=== PATIENT | male | born 1930 | race Caucasian/White ===

== ENCOUNTER 2018-03-05 09:28 | Inpatient (IN) | payer MEDICARE ==
[~2018-03-05] VITALS: Ht 167.6 cm; Wt 86.6 kg
[2018-03-05 10:04] LABS: BASO # 0.1 x10^3/uL (0.0-0.2); BASO % 1 % (0-3); EOS # 0.6 x10^3/uL (0.0-0.7); EOS % 6 % (0-3); HEMATOCRIT 47.7 % (39.0-53.0); HEMOGLOBIN 16.5 g/dL (13.0-17.5); LYMPH # 1.5 x10^3/uL (1.0-4.8); LYMPH % 16 % (24-48); MEAN CORPUSCULAR HEMOGLOBIN 31 pg (25-35); MEAN CORPUSCULAR HGB CONC 35 g/dL (31-37); MEAN CORPUSCULAR VOLUME 91 fL (79-100); MONO % 11 % (0-9); NEUT # 6.1 x10^3uL (1.8-7.7); NEUT % 67 % (31-73); RED BLOOD COUNT 5.26 x10^6/uL (4.30-5.70); WHITE BLOOD COUNT 9.2 x10^3/uL (4.0-11.0)
--- NOTE | 2018-03-05 10:08 | PHYS DOC ---
Past Medical History Past Medical History: A-Fib, High Cholesterol, Hypertension Past Surgical History: Pacemaker, Other Additional Past Surgical Histo: PACEMAKER X3,HERNIA,EYE Alcohol Use: None Drug Use: None Adult General Chief Complaint Chief Complaint: ABNORMAL LABS [facility] Patient is a 87 year old who presents with thrombocytopenia. The patient noted 2 days ago a petechial rash over the lower extremities. He was evaluated by his primary care physician yesterday. He had basic labs done and was noted to have very low platelet counts. He was referred to the emergency department. The patient has been at baseline health otherwise. He has no recent viral illness. He does have history of high blood pressure and high cholesterol as well as atrial fibrillation. His current medications are listed below. He has been on these medications for an extended period of time and none of them are new. He has been on the eliquis for over 1 year. He denies abdominal pain. He denies hematochezia or melena. He has been eating and drinking normally. He denies hematuria. He has no fever or body aches. No recent travel. CURRENT MEDICATIONS: - HCTZ 25 MG DAILY - METOPROLOL TARTRATE 100MG BID - SIMVASTATIN 20 MG DAILY - CARTIA XT 180 MG DAILY - ELIQUIS 2.5 MG BID Review of Systems Review of Systems Constitutional: Denies fever or chills Eyes: Denies change in visual acuity, redness, or eye pain HENT: Denies nasal congestion or sore throat Respiratory: Denies cough or shortness of breath Cardiovascular: No additional information not addressed in HPI GI: Denies abdominal pain, nausea : Denies dysuria or hematuria Musculoskeletal: Denies back pain Integument: Denies rash or skin lesions Neurologic: Denies headache Endocrine: Denies polyuria All other systems were reviewed and found to be within normal limits, except as documented in this note. Allergies Allergies Allergies Coded Allergies Type Severity Reaction Last Updated Verified No Known Drug Allergies 03/05/18 No Physical Exam Physical Exam Constitutional: Well developed, well nourished, no acute distress, non-toxic appearance HENT: Normocephalic, atraumatic, bilateral external ears normal, oropharynx moist, no oral exudates, the patient has a few oral ulcers that appear more like blood blisters. At least one of these is oozing a scant amount of blood. Eyes: PERRLA, EOMI, conjunctiva normal, no discharge. Neck: Normal range of motion, no tenderness Cardiovascular:Heart rate regular rhythm, no murmur Lungs & Thorax: Bilateral breath sounds clear to auscultation Abdomen: Bowel sounds normal, soft, no tenderness Skin: Warm, dry, petechial rash over the bilateral lower extremities and also over the upper extremities although less pronounced. Back: No tenderness Extremities: No tenderness, no edema Neurologic: Alert and oriented X 3, normal motor function, normal sensory function, no focal deficits noted. Psychologic: Affect normal, judgement normal, mood normal. Current Patient Data Vital Signs Vital Signs Date Time Temp Pulse Resp B/P (MAP) Pulse Ox O2 Delivery O2 Flow Rate FiO2 03/05/18 09:33 97.6 71 18 169/83 (111) 96 Room Air 97.6 Lab Values Laboratory Tests Test 03/05/18 09:50 White Blood Count 9.2 x10^3/uL (4.0-11.0) Red Blood Count 5.26 x10^6/uL (4.30-5.70) Hemoglobin 16.5 g/dL (13.0-17.5) Hematocrit 47.7 % (39.0-53.0) Mean Corpuscular Volume 91 fL (79-100) Mean Corpuscular Hemoglobin 31 pg (25-35) Mean Corpuscular Hemoglobin Concent 35 g/dL (31-37) Red Cell Distribution Width 14.0 % (11.5-14.5) Platelet Count 5 x10^3/uL (140-400) *L Neutrophils (%) (Auto) 67 % (31-73) Lymphocytes (%) (Auto) 16 % (24-48) L Monocytes (%) (Auto) 11 % (0-9) H Eosinophils (%) (Auto) 6 % (0-3) H Basophils (%) (Auto) 1 % (0-3) Neutrophils # (Auto) 6.1 x10^3uL (1.8-7.7) Lymphocytes # (Auto) 1.5 x10^3/uL (1.0-4.8) Monocytes # (Auto) 1.0 x10^3/uL (0.0-1.1) Eosinophils # (Auto) 0.6 x10^3/uL (0.0-0.7) Basophils # (Auto) 0.1 x10^3/uL (0.0-0.2) Platelet Estimate Decreased (ADEQUATE) Prothrombin Time 14.2 SEC (11.7-14.0) H Prothrombin Time INR 1.2 (0.8-1.1) H PTT 31 SEC (24-38) Fibrinogen 533 mg/dL (200-440) H D-Dimer (Gill) 4.87 ug/mlFEU (0.00-0.50) H Sodium Level 139 mmol/L (136-145) Potassium Level 3.5 mmol/L (3.5-5.1) Chloride Level 99 mmol/L (98-107) Carbon Dioxide Level 32 mmol/L (21-32) Anion Gap 8 (6-14) Blood Urea Nitrogen 18 mg/dL (8-26) Creatinine 1.1 mg/dL (0.7-1.3) Estimated GFR (Cockcroft-Gault) 63.5 Glucose Level 101 mg/dL (70-99) H Calcium Level 9.4 mg/dL (8.5-10.1) Total Bilirubin 2.2 mg/dL (0.2-1.0) H Direct Bilirubin 0.5 mg/dL (0.0-0.2) H Aspartate Amino Transferase (AST) 19 U/L (15-37) Alanine Aminotransferase (ALT) 27 U/L (16-63) Alkaline Phosphatase 75 U/L (46-116) Lactate Dehydrogenase 195 U/L (85-227) Total Protein 7.7 g/dL (6.4-8.2) Albumin 4.2 g/dL (3.4-5.0) Laboratory Tests 03/05/18 09:50 Laboratory Tests 03/05/18 09:50 EKG EKG [] Radiology/Procedures Radiology/Procedures [] Course & Med Decision Making Course & Med Decision Making Pertinent Labs and Imaging studies reviewed. (See chart for details) Patient is evaluated in the emergency department for low platelets. His platelets are documented above. He did have some scant amount of bleeding from an ulcer in his mouth but no acute bleeding. The patient has been at baseline health otherwise. He does take several medications which could induce thrombocytopenia although none of them are new to this patient. No fever. I discussed this patient with Dr. Metzger, the cell room operator sound effects person. Plan will be to admit the patient on high-dose Decadron. He will have 40 mg daily. He is given 125 mg of Solu-Medrol in the ER. Bridge orders are placed. Patient is also placed on fall and bleeding precautions. I spoke to the patient's primary care physician, Dr. Gregg, who will primarily admit the patient. Prior to admission, all results are reviewed and discussed with the patient and his family and all of their questions are answered. Dragon Disclaimer Dragon Disclaimer This electronic medical record was generated, in whole or in part, using a voice recognition dictation system. FABIANA CHAWLA DO Mar 05, 2018 10:08
[2018-03-05 10:10] LABS: CALCIUM 9.4 mg/dL (8.5-10.1); CREATININE 1.1 mg/dL (0.7-1.3); GFR 63.5; POTASSIUM 3.5 mmol/L (3.5-5.1)
[2018-03-05 10:16] LABS: ALBUMIN 4.2 g/dL (3.4-5.0); DIRECT BILIRUBIN 0.5 mg/dL (0.0-0.2); TOTAL BILIRUBIN 2.2 mg/dL (0.2-1.0); TOTAL PROTEIN 7.7 g/dL (6.4-8.2)
[2018-03-05 10:17] LABS: PROTHROMBIN TIME PATIENT 14.2 SEC (11.7-14.0)
[2018-03-05 10:21] LABS: PLATELET COUNT 5 x10^3/uL (140-400)
[2018-03-05 10:22] LABS: PLT ESTIMATE DECREASED (ADEQUATE)
[2018-03-05] MEDS ORDERED: ONDANSETRON PF 4 MG/2 ML VIAL. IV PRN (11:15)
[2018-03-05] MEDS ORDERED: methylPREDNISolone SOD SUCC PF 125 MG/2 ML VIAL. IV ONE (11:15)
[2018-03-05] MEDS ORDERED: ACETAMINOPHEN 325 MG TABLET. PO PRN (11:15)
[2018-03-05 12:00] VITALS: BP 95/66
[2018-03-05 15:00] VITALS: BP 141/72
[2018-03-05] MEDS ORDERED: SIMV20TA3 PO (15:56)
[2018-03-05] MEDS ORDERED: HYDR12.58 PO (15:56)
[2018-03-05] MEDS ORDERED: APIX2.5T PO (15:56)
[2018-03-05] MEDS ORDERED: DILT180C64 PO (15:56)
[2018-03-05] MEDS ORDERED: METO50TA6 PO (15:56)
[2018-03-05] MEDS: PANTOPRAZOLE 40 MG TABLET.DR. PO SCH (16:42)
[2018-03-05] MEDS: hydroCHLOROthiazide 12.5 MG CAPSULE PO SCH (16:43)
[2018-03-05 19:00] VITALS: BP 140/74
[2018-03-05 20:06] LABS: BASO % 0 % (0-3); EOS % 0 % (0-3); HEMATOCRIT 44.5 % (39.0-53.0); HEMOGLOBIN 15.5 g/dL (13.0-17.5); LYMPH # 0.6 x10^3/uL (1.0-4.8); LYMPH % 9 % (24-48); MEAN CORPUSCULAR HEMOGLOBIN 32 pg (25-35); MEAN CORPUSCULAR HGB CONC 35 g/dL (31-37); MEAN CORPUSCULAR VOLUME 91 fL (79-100); MONO # 0.1 x10^3/uL (0.0-1.1); MONO % 1 % (0-9); NEUT # 5.7 x10^3uL (1.8-7.7); NEUT % 90 % (31-73); RED BLOOD COUNT 4.91 x10^6/uL (4.30-5.70); RED CELL DISTRIBUTION WIDTH 14.1 % (11.5-14.5); WHITE BLOOD COUNT 6.3 x10^3/uL (4.0-11.0)
[2018-03-05 20:09] LABS: PLATELET COUNT 3 x10^3/uL (140-400)
[2018-03-05] MEDS: METOPROLOL TART IMMED RELEASE 50 MG TABLET. PO SCH (20:33)
[2018-03-05] MEDS: ATORVASTATIN CALCIUM 10 MG TABLET. PO SCH (20:33)
[2018-03-05 20:40] LABS: % BANDS 3 % (0-9); % LYMPHS 8 % (24-48); % MYELOS 1 % (0-0); % SEGS 88 % (35-66); PLT ESTIMATE DECREASED (ADEQUATE)
[2018-03-05 20:44] LABS: POIKILOCYTOSIS SLIGHT
[2018-03-05 20:47] LABS: SPHEROCYTES OCC
--- NOTE | 2018-03-05 22:27 | HP ---
ADMIT DATE: 03/05/2018 CHIEF COMPLAINT: Bruising. HISTORY OF PRESENT ILLNESS: An 87-year-old white male seen on the day prior to admission and noted to have about 3-day history of gradually increasing "skin rash." These lesions were found to be petechial and purpuric lesions and CBC revealed a platelet count of under 6000. He was admitted through the office for emergency evaluation and assessment of his thrombocytopenia. The hemoglobin and white cell count were normal on his CBC and physical exam otherwise unremarkable consistent with the suspected diagnosis of ITP. PAST MEDICAL HISTORY: Well documented on the old record. MEDICATIONS: He takes Eliquis for paroxysmal atrial fibrillation, but has been in sinus rhythm in office visits. He is followed through the [place] for these meds. He is also on simvastatin and hydrochlorothiazide. ALLERGIES: No allergies are known. SOCIAL HISTORY: , retired, physically active, nondrinker. FAMILY HISTORY: Unremarkable. REVIEW OF SYSTEMS: No other complaints. OBJECTIVE: ENT: All within normal limits. He does have hemorrhagic lesions of both buccal mucosa from minor trauma. Sclerae are clear. NECK: Revealed no carotid bruits, adenopathy or masses. LUNGS: Clear. CARDIOVASCULAR: Regular rate. No murmur. Sinus rhythm is present. ABDOMEN: Soft. Nontender. No hepatosplenomegaly is noted. EXTREMITIES: Innumerable 3-8 mm purpuric lesions primarily in the lower extremities, small wounds on the upper extremities. Nail beds appear to be unremarkable. Pedal and radial pulses good. No edema. NEUROLOGIC: Physiologic, nonfocal. ASSESSMENT: Severe thrombocytopenia, duration and etiology undetermined. 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 PLAN: High-dose steroids already instituted, hematologic consultation and observation as he is high risk for catastrophic bleeding at this time. GEN PILLAI MD DR: FLACO/yovana JOB#: [id number] / [id number]
[2018-03-05 23:00] VITALS: BP 116/63
[2018-03-06] VITALS (17 sets, daily range): BP systolic 105–139; BP diastolic 50–77
[2018-03-06 04:30] LABS: CALCIUM 8.8 mg/dL (8.5-10.1); CREATININE 1.2 mg/dL (0.7-1.3); GFR 57.4; POTASSIUM 3.5 mmol/L (3.5-5.1)
--- NOTE | 2018-03-06 07:29 | PDOC2 ---
CONSULT Date of Consult Date of Consult DATE: 03/06/18 TIME: 07:22 Reason for Consult Reason for Consult: thrombocytopenia Identification/Chief Complaint Chief Complaint low plt count History of Present Illness Reason for Visit: 87 yo M who came down with large petechiae in mouth/lips, petechial rash on legs , so went into PCP's office on Wednesday. Labs drawn showed significant thrombocytopenia, and was told to come into ER yest morning. Feeling okay otherwise. Came into ER on 03/05/18, found to have plt count 5K with normal WBC and Hgb, given 125mg IV solumedrol @noon yesterday. No response in plt count yet. This morning, he cannot open his R eye and there is no exudate/drainage keeping eye shut; no facial droop, no slurring of words, sensation and strength intact otherwise in all four extremities. Past Medical History Cardiovascular: AFIB, HTN Pulmonary: No pertinent hx Heme/Onc: No pertinent hx Hepatobiliary: No pertinent hx Psych: No pertinent hx Rheumatologic: No pertinent hx Infectious disease: No pertinent hx ENT: No pertinent hx Renal/: No pertinent hx Endocrine: No pertinent hx Dermatology: No pertinent hx Family History Family History non contributory Current Problem List Problem List Problems Medical Problems: (1) Thrombocytopenia Status: Acute Current Medications Current Medications Current Medications Methylprednisolone Sodium Succinate (SOLU-Medrol 125MG VIAL) 125 mg 1X ONCE IV Last administered on 03/05/18at 11:48; Start 03/05/18 at 11:15; Stop 03/05/18 at 11:16; Status DC Ondansetron HCl (Zofran) 4 mg PRN Q8HRS PRN IV NAUSEA/VOMITING; Start 03/05/18 at 11:15; Stop 03/06/18 at 11:14 Acetaminophen (Tylenol) 650 mg PRN Q4HRS PRN PO FEVER; Start 03/05/18 at 11:15; Stop 03/06/18 at 11:14 Dexamethasone (Decadron) 40 mg DAILYWBKFT PO ; Start 03/06/18 at 08:00 Pantoprazole Sodium (Protonix) 40 mg DAILYAC PO Last administered on 03/05/18at 16:42; Start 03/05/18 at 16:30 Metoprolol Tartrate (Lopressor) 50 mg BID PO Last administered on 03/05/18at 20: 33; Start 03/05/18 at 21:00 Hydrochlorothiazide (Microzide) 12.5 mg DAILY PO Last administered on 03/05/18at 16:43; Start 03/05/18 at 17:00 Atorvastatin Calcium (Lipitor) 10 mg QHS PO Last administered on 03/05/18at 20:33 ; Start 03/05/18 at 21:00 Diltiazem HCl (Cardizem 24hr Cd) 180 mg DAILY PO Last administered on 03/05/18at 16:43; Start 03/05/18 at 17:00 Immune Globulin 200 ml @ 0 mls/hr DAILY10 IV ; Start 03/06/18 at 10:00; Stop 03/10 at 09:59; Status UNV Active Scripts Active Reported Eliquis (Apixaban) 2.5 Mg Tablet 2.5 Mg PO BID Cartia Xt (Diltiazem Hcl) 180 Mg Cap.er.24h 180 Mg PO Hydrochlorothiazide Tablet (Hydrochlorothiazide) 12.5 Mg Tablet 1 Tab PO DAILY Simvastatin 20 Mg Tablet 1 Tab PO QHS Metoprolol Tartrate 50 Mg Tablet 1 Tab PO BID Allergies Allergies: Coded Allergies: No Known Drug Allergies (Unverified , 03/05/18) ROS General: No: Chills, Night Sweats, Fatigue, Malaise, Appetite, Other PSYCHOLOGICAL ROS: No: Anxiety, Behavioral Disorder, Concentration difficultie , Decreased libido, Depression, Disorientation, Hallucinations, Hostility, Irritablity, Memory difficulties, Mood Swings, Obsessive thoughts, Physical abuse, Sexual abuse, Sleep disturbances, Suicidal ideation, Other Eyes: No Blurry vision, No Decreased vision, No Double vision, No Dry eyes, No Excessive tearing, No Eye Pain, No Itchy Eyes, No Loss of vision, No Photophobia , No Scotomata, No Uses contacts, No Uses glasses, No Other HEENT: YES: Other (mucosal bleeding in mouth) ALLERGY AND IMMUNOLOGY: No: Hives, Insect Bite Sensitivity, Itchy/Watery Eyes, Nasal Congestion, Post Nasal Drip, Seasonal Allergies, Other Hematological and Lymphatic: YES: Bleeding Problems Respiratory: No: Cough, Hemoptysis, Orthopnea, Pleuritic Pain, Shortness of breath, SOB with excertion, Sputum Changes, Stridor, Tachypnea, Wheezing, Other Cardiovascular: No Chest Pain, No Palpitations, No Orthopnea, No Paroxysmal Noc. Dyspnea, No Edema, No Lt Headedness, No Other Gastrointestinal: No Nausea, No Vomiting, No Abdominal Pain, No Diarrhea, No Constipation, No Melena, No Hematochezia, No Other Genitourinary: No Dysuria, No Frequency, No Incontinence, No Hematuria, No Retention, No Discharge, No Urgency, No Pain, No Flank Pain, No Other, No , No , No , No , No , No , No Musculoskeletal: No Gait Disturbance, No Joint Pain, No Joint Stiffness, No Joint Swelling, No Muscle Pain, No Muscular Weakness, No Pain In:, No Swelling In:, No Other Neurological: No Behavorial Changes, No Bowel/Bladder ControlChng, No Confusion , No Dizziness, No Gait Disturbance, No Headaches, No Impaired Coord/balance, No Memory Loss, No Numbness/Tingling, No Seizures, No Speech Problems, No Tremors, No Visual Changes, No Weakness, No Other Skin: Yes Rash (petechiae BLE); No Dry Skin, No Eczema, No Hair Changes, No Lumps, No Mole Changes, No Mottling, No Nail Changes, No Pruritus, No Skin Lesion Changes, No Other, No Acne Physical Exam General: Alert, Oriented X3, No acute distress HEENT: Atraumatic, EOMI, Other (large dark nodules along mucosal membranes of R lower lip and inside of mouth) Lungs: Clear to auscultation, Normal air movement Heart: Regular rate, No murmurs Abdomen: Normal bowel sounds, No tenderness Extremities: No clubbing, No edema Skin: No significant lesion, Other (petechiae) Neuro: Normal speech, Strength at 5/5 X4 ext, Normal tone, Sensation intact, Other (unable to open R eyelid, no facial droop, smile is equal, hearing intact) Psych/Mental Status: Mental status NL MUSCULOSKELETAL: No joint tenderness, No deformity, No swelling Vitals VITALS Vital Signs Date Time Temp Pulse Resp B/P (MAP) Pulse Ox O2 Delivery O2 Flow Rate FiO2 03/06/18 03:00 97.9 71 20 130/77 (94) 90 97.9 03/05/18 23:00 Room Air Labs Labs Laboratory Tests Test 03/05/18 09:50 03/05/18 19:45 03/06/18 02:25 03/06/18 03:00 White Blood Count 9.2 x10^3/uL (4.0-11.0) 6.3 x10^3/uL (4.0-11.0) Red Blood Count 5.26 x10^6/uL (4.30-5.70) 4.91 x10^6/uL (4.30-5.70) Hemoglobin 16.5 g/dL (13.0-17.5) 15.5 g/dL (13.0-17.5) Hematocrit 47.7 % (39.0-53.0) 44.5 % (39.0-53.0) Mean Corpuscular Volume 91 fL (79-100) 91 fL (79-100) Mean Corpuscular Hemoglobin 31 pg (25-35) 32 pg (25-35) Mean Corpuscular Hemoglobin Concent 35 g/dL (31-37) 35 g/dL (31-37) Red Cell Distribution Width 14.0 % (11.5-14.5) 14.1 % (11.5-14.5) Platelet Count 5 x10^3/uL (140-400) 3 x10^3/uL (140-400) 4 x10^3/uL (140-400) Neutrophils (%) (Auto) 67 % (31-73) 90 % (31-73) Lymphocytes (%) (Auto) 16 % (24-48) 9 % (24-48) Monocytes (%) (Auto) 11 % (0-9) 1 % (0-9) Eosinophils (%) (Auto) 6 % (0-3) 0 % (0-3) Basophils (%) (Auto) 1 % (0-3) 0 % (0-3) Neutrophils # (Auto) 6.1 x10^3uL (1.8-7.7) 5.7 x10^3uL (1.8-7.7) Lymphocytes # (Auto) 1.5 x10^3/uL (1.0-4.8) 0.6 x10^3/uL (1.0-4.8) Monocytes # (Auto) 1.0 x10^3/uL (0.0-1.1) 0.1 x10^3/uL (0.0-1.1) Eosinophils # (Auto) 0.6 x10^3/uL (0.0-0.7) 0.0 x10^3/uL (0.0-0.7) Basophils # (Auto) 0.1 x10^3/uL (0.0-0.2) 0.0 x10^3/uL (0.0-0.2) Platelet Estimate Decreased (ADEQUATE) Decreased (ADEQUATE) Prothrombin Time 14.2 SEC (11.7-14.0) Prothromb Time International Ratio 1.2 (0.8-1.1) Activated Partial Thromboplast Time 31 SEC (24-38) Fibrinogen 533 mg/dL (200-440) D-Dimer (Gill) 4.87 ug/mlFEU (0.00-0.50) Sodium Level 139 mmol/L (136-145) 137 mmol/L (136-145) Potassium Level 3.5 mmol/L (3.5-5.1) 3.5 mmol/L (3.5-5.1) Chloride Level 99 mmol/L (98-107) 100 mmol/L (98-107) Carbon Dioxide Level 32 mmol/L (21-32) 26 mmol/L (21-32) Anion Gap 8 (6-14) 11 (6-14) Blood Urea Nitrogen 18 mg/dL (8-26) 22 mg/dL (8-26) Creatinine 1.1 mg/dL (0.7-1.3) 1.2 mg/dL (0.7-1.3) Estimated GFR (Cockcroft-Gault) 63.5 57.4 Glucose Level 101 mg/dL (70-99) 177 mg/dL (70-99) Calcium Level 9.4 mg/dL (8.5-10.1) 8.8 mg/dL (8.5-10.1) Total Bilirubin 2.2 mg/dL (0.2-1.0) Direct Bilirubin 0.5 mg/dL (0.0-0.2) Aspartate Amino Transf (AST/SGOT) 19 U/L (15-37) Alanine Aminotransferase (ALT/SGPT) 27 U/L (16-63) Alkaline Phosphatase 75 U/L (46-116) Lactate Dehydrogenase 195 U/L (85-227) Total Protein 7.7 g/dL (6.4-8.2) Albumin 4.2 g/dL (3.4-5.0) Segmented Neutrophils % 88 % (35-66) Band Neutrophils % 3 % (0-9) Lymphocytes % 8 % (24-48) Myelocytes % 1 % (0-0) Poikilocytosis Slight Spherocytes Occ Laboratory Tests Test 03/05/18 09:50 03/05/18 19:45 03/06/18 02:25 03/06/18 03:00 White Blood Count 9.2 x10^3/uL (4.0-11.0) 6.3 x10^3/uL (4.0-11.0) Red Blood Count 5.26 x10^6/uL (4.30-5.70) 4.91 x10^6/uL (4.30-5.70) Hemoglobin 16.5 g/dL (13.0-17.5) 15.5 g/dL (13.0-17.5) Hematocrit 47.7 % (39.0-53.0) 44.5 % (39.0-53.0) Mean Corpuscular Volume 91 fL (79-100) 91 fL (79-100) Mean Corpuscular Hemoglobin 31 pg (25-35) 32 pg (25-35) Mean Corpuscular Hemoglobin Concent 35 g/dL (31-37) 35 g/dL (31-37) Red Cell Distribution Width 14.0 % (11.5-14.5) 14.1 % (11.5-14.5) Platelet Count 5 x10^3/uL (140-400) 3 x10^3/uL (140-400) 4 x10^3/uL (140-400) Neutrophils (%) (Auto) 67 % (31-73) 90 % (31-73) Lymphocytes (%) (Auto) 16 % (24-48) 9 % (24-48) Monocytes (%) (Auto) 11 % (0-9) 1 % (0-9) Eosinophils (%) (Auto) 6 % (0-3) 0 % (0-3) Basophils (%) (Auto) 1 % (0-3) 0 % (0-3) Neutrophils # (Auto) 6.1 x10^3uL (1.8-7.7) 5.7 x10^3uL (1.8-7.7) Lymphocytes # (Auto) 1.5 x10^3/uL (1.0-4.8) 0.6 x10^3/uL (1.0-4.8) Monocytes # (Auto) 1.0 x10^3/uL (0.0-1.1) 0.1 x10^3/uL (0.0-1.1) Eosinophils # (Auto) 0.6 x10^3/uL (0.0-0.7) 0.0 x10^3/uL (0.0-0.7) Basophils # (Auto) 0.1 x10^3/uL (0.0-0.2) 0.0 x10^3/uL (0.0-0.2) Platelet Estimate Decreased (ADEQUATE) Decreased (ADEQUATE) Prothrombin Time 14.2 SEC (11.7-14.0) Prothromb Time International Ratio 1.2 (0.8-1.1) Activated Partial Thromboplast Time 31 SEC (24-38) Fibrinogen 533 mg/dL (200-440) D-Dimer (Gill) 4.87 ug/mlFEU (0.00-0.50) Sodium Level 139 mmol/L (136-145) 137 mmol/L (136-145) Potassium Level 3.5 mmol/L (3.5-5.1) 3.5 mmol/L (3.5-5.1) Chloride Level 99 mmol/L (98-107) 100 mmol/L (98-107) Carbon Dioxide Level 32 mmol/L (21-32) 26 mmol/L (21-32) Anion Gap 8 (6-14) 11 (6-14) Blood Urea Nitrogen 18 mg/dL (8-26) 22 mg/dL (8-26) Creatinine 1.1 mg/dL (0.7-1.3) 1.2 mg/dL (0.7-1.3) Estimated GFR (Cockcroft-Gault) 63.5 57.4 Glucose Level 101 mg/dL (70-99) 177 mg/dL (70-99) Calcium Level 9.4 mg/dL (8.5-10.1) 8.8 mg/dL (8.5-10.1) Total Bilirubin 2.2 mg/dL (0.2-1.0) Direct Bilirubin 0.5 mg/dL (0.0-0.2) Aspartate Amino Transf (AST/SGOT) 19 U/L (15-37) Alanine Aminotransferase (ALT/SGPT) 27 U/L (16-63) Alkaline Phosphatase 75 U/L (46-116) Lactate Dehydrogenase 195 U/L (85-227) Total Protein 7.7 g/dL (6.4-8.2) Albumin 4.2 g/dL (3.4-5.0) Segmented Neutrophils % 88 % (35-66) Band Neutrophils % 3 % (0-9) Lymphocytes % 8 % (24-48) Myelocytes % 1 % (0-0) Poikilocytosis Slight Spherocytes Occ Assessment/Plan Assessment/Plan 87 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 He was started on steroids yesterday with no response after one dose of IV solumedrol. With new finding this morning of being unable to open R eye, I would like to get a stat MRI head w/ and w/o to make sure he is not bleeding into brain. If no hemorrhagic stroke seen, then plan will be to switch to 40mg PO decadron today, with IVIG for next 4 days. If refractory to these measures, could consider Rituxan. As long as no major bleeding, please hold off on platelet transfusion, as that would just add fuel to the fire, per se. Needs daily CBCs until we see an appropriate response. Thanks for the consult Domenica, cell [phone] REYNALDO MCKEON MD Mar 06, 2018 07:29
[2018-03-06] MEDS ORDERED: DEXAMETHASONE 4 MG TABLET PO SCH (08:00)
[2018-03-06] MEDS: hydroCHLOROthiazide 12.5 MG CAPSULE PO SCH (08:17)
[2018-03-06] MEDS: PANTOPRAZOLE 40 MG TABLET.DR. PO SCH (08:17)
[2018-03-06] MEDS: METOPROLOL TART IMMED RELEASE 50 MG TABLET. PO SCH ×2 (08:18→20:48)
[2018-03-06] MEDS ORDERED: CONTRAST GIVEN. MC PRN (09:45)
[2018-03-06] MEDS ORDERED: IOHEXOL 300 MG/ML 100ML VIAL. IV ONE (09:45)
--- NOTE | 2018-03-06 10:10 | RAD ---
CT HEAD WO/W CONTRAST Clinical indications: ITP with low platelet count 3K, unable to open R eye this morning, concern for bleed Technique: Noncontrast axial cross sectional scanning of the head was performed. After IV infusion of 60 cc of Omnipaque 300, repeat CT scanning of the head was performed. PQRS compliance Statement One or more of the following individualized dose reduction techniques were utilized for this study: 1. Automated exposure control 2. Adjustment of the mA and/or kV according to patient size 3. Use of iterative reconstruction technique Findings: There is hyperdense acute hemorrhage within the right side of the midbrain measuring 15 mm. There is acute hyperdense hemorrhage within the medial posterior aspect of the left cerebellum measuring 21 mm. There is a small peripheral subcortical hyperdense petechial hemorrhage within the anterior left parietal lobe measuring 5 mm. There is a small subcortical hyperdense petechial hemorrhage within the upper right parietal lobe medially measuring 5 mm in size. No enhancement of these areas is seen outside of the hyperdense hemorrhage. No other intracranial hemorrhage or intracranial contrast enhancing lesion is seen. No midline shift or significant mass effect is seen. No extra-axial fluid collection is seen. No hydrocephalus is evident. Mild periventricular white matter hypodensity is seen bilaterally consistent with mild chronic small vessel ischemic disease in this age group. There is mild mucosal thickening of the ethmoid sinuses bilaterally. Maxillary sinuses are not completely seen in this study. Middle ear cavities and mastoid sinuses are clear. No skull fracture or pneumocephalus is seen. Impression: 4 separate foci of acute hyperdense hemorrhages are seen including the right side of the midbrain and the left cerebellum and both parietal lobes. Note-this critical result was called to Fiorella the patient's floor nurse at 10:00 AM on March 06, 2018. Electronically signed by: Anders Calabrese MD (03/06/2018 10:07 AM) [facility]
[2018-03-06 11:06] LABS: HEMATOCRIT 42.6 % (39.0-53.0); HEMOGLOBIN 14.9 g/dL (13.0-17.5); RED BLOOD COUNT 4.73 x10^6/uL (4.30-5.70); RED CELL DISTRIBUTION WIDTH 13.8 % (11.5-14.5); WHITE BLOOD COUNT 20.2 x10^3/uL (4.0-11.0)
[2018-03-06 11:14] LABS: PROTHROMBIN TIME PATIENT 14.8 SEC (11.7-14.0)
[2018-03-06 11:18] LABS: CALCIUM 9.1 mg/dL (8.5-10.1); CREATININE 1.1 mg/dL (0.7-1.3); GFR 63.5; POTASSIUM 3.4 mmol/L (3.5-5.1)
--- NOTE | 2018-03-06 11:33 | PDOC ---
GENERAL General: today's H&P will function as today's progress note as I did not realize H&P already dictated by Dr. Gregg. VITAL SIGNS Vital Signs: Vital Signs Date Time Temp Pulse Resp B/P (MAP) Pulse Ox O2 Delivery O2 Flow Rate FiO2 03/06/18 11:27 97.9 70 24 124/68 (86) 94 Room Air 97.9 I & O I & O Intake and Output 03/06/18 07:00 Intake Total 510 ml Balance 510 ml Intake Oral 510 ml # Voids 4 ALLERGIES Allergies: Allergies Coded Allergies Type Severity Reaction Last Updated Verified No Known Drug Allergies 03/05/18 No MEDS Medications: Current Medications Medications (Trade) Dose Ordered Sig/Rafael Start Time Stop Time Status Last Admin Dose Admin Acetaminophen (Tylenol) 650 mg PRN Q4HRS PRN 03/05/18 11:15 03/06/18 11:14 DC Atorvastatin Calcium (Lipitor) 10 mg QHS 03/05/18 21:00 03/05/18 20:33 10 MG Dexamethasone (Decadron) 40 mg DAILYWBKFT 03/06/18 08:00 03/06/18 09:20 40 MG Diltiazem HCl (Cardizem 24hr Cd) 180 mg DAILY 03/05/18 17:00 03/06/18 08:18 180 MG Hydrochlorothiazide (Microzide) 12.5 mg DAILY 03/05/18 17:00 03/06/18 08:17 12.5 MG Immune Globulin 200 ml @ 0 mls/hr DAILY@1200 03/06/18 12:00 03/10/18 11:59 Info (CONTRAST GIVEN -- Rx MONITORING) 1 each PRN DAILY PRN 03/06/18 09:45 03/08/18 09:44 Iohexol (Omnipaque 300 Mg/ml) 60 ml 1X ONCE 03/06/18 09:45 03/06/18 09:46 DC 03/06/18 09:45 60 ML Methylprednisolone Sodium Succinate (SOLU-Medrol 125MG VIAL) 125 mg 1X ONCE 03/05/18 11:15 03/05/18 11:16 DC 03/05/18 11:48 125 MG Metoprolol Tartrate (Lopressor) 50 mg BID 03/05/18 21:00 03/06/18 08:18 50 MG Ondansetron HCl (Zofran) 4 mg PRN Q8HRS PRN 03/05/18 11:15 03/06/18 11:14 DC Pantoprazole Sodium (Protonix) 40 mg DAILYAC 03/05/18 16:30 03/06/18 08:17 40 MG LAB Lab: Laboratory Tests Test 03/05/18 19:45 03/06/18 02:25 03/06/18 03:00 03/06/18 10:55 White Blood Count 6.3 x10^3/uL (4.0-11.0) 20.2 x10^3/uL (4.0-11.0) Red Blood Count 4.91 x10^6/uL (4.30-5.70) 4.73 x10^6/uL (4.30-5.70) Hemoglobin 15.5 g/dL (13.0-17.5) 14.9 g/dL (13.0-17.5) Hematocrit 44.5 % (39.0-53.0) 42.6 % (39.0-53.0) Mean Corpuscular Volume 91 fL (79-100) 90 fL (79-100) Mean Corpuscular Hemoglobin 32 pg (25-35) 32 pg (25-35) Mean Corpuscular Hemoglobin Concent 35 g/dL (31-37) 35 g/dL (31-37) Red Cell Distribution Width 14.1 % (11.5-14.5) 13.8 % (11.5-14.5) Platelet Count 3 x10^3/uL (140-400) 4 x10^3/uL (140-400) 4 x10^3/uL (140-400) Neutrophils (%) (Auto) 90 % (31-73) Lymphocytes (%) (Auto) 9 % (24-48) Monocytes (%) (Auto) 1 % (0-9) Eosinophils (%) (Auto) 0 % (0-3) Basophils (%) (Auto) 0 % (0-3) Neutrophils # (Auto) 5.7 x10^3uL (1.8-7.7) Lymphocytes # (Auto) 0.6 x10^3/uL (1.0-4.8) Monocytes # (Auto) 0.1 x10^3/uL (0.0-1.1) Eosinophils # (Auto) 0.0 x10^3/uL (0.0-0.7) Basophils # (Auto) 0.0 x10^3/uL (0.0-0.2) Segmented Neutrophils % 88 % (35-66) Band Neutrophils % 3 % (0-9) Lymphocytes % 8 % (24-48) Myelocytes % 1 % (0-0) Platelet Estimate Decreased (ADEQUATE) Poikilocytosis Slight Spherocytes Occ Sodium Level 137 mmol/L (136-145) 136 mmol/L (136-145) Potassium Level 3.5 mmol/L (3.5-5.1) 3.4 mmol/L (3.5-5.1) Chloride Level 100 mmol/L (98-107) 100 mmol/L (98-107) Carbon Dioxide Level 26 mmol/L (21-32) 28 mmol/L (21-32) Anion Gap 11 (6-14) 8 (6-14) Blood Urea Nitrogen 22 mg/dL (8-26) 21 mg/dL (8-26) Creatinine 1.2 mg/dL (0.7-1.3) 1.1 mg/dL (0.7-1.3) Estimated GFR (Cockcroft-Gault) 57.4 63.5 Glucose Level 177 mg/dL (70-99) 173 mg/dL (70-99) Calcium Level 8.8 mg/dL (8.5-10.1) 9.1 mg/dL (8.5-10.1) CISCO PERALTA MD Mar 06, 2018 11:33
--- NOTE | 2018-03-06 11:55 | RAD ---
PORTABLE CHEST 1V Clinical indications: RECENT WEAKNESS COMPARISON: October 16, 2005. Findings: Chronic scarring is seen within the left lung base. No acute lung infiltrate or pleural effusion or pulmonary edema or lung mass or pneumothorax is seen. The heart size, pulmonary vasculature, mediastinum and both arcenio are stable given AP magnification. Pacemaker is again evident. Impression: No acute radiographic abnormality is seen. Electronically signed by: Anders Calabrese MD (03/06/2018 11:52 AM) [facility]
--- NOTE | 2018-03-06 12:18 | HP ---
ADMIT DATE: 03/05/2018 CHIEF COMPLAINT AND HISTORY OF PRESENT ILLNESS: This 87-year-old white male was seen in Dr. Gregg's office with a petechial rash, had lab done and was noted to have marked thrombocytopenia, was referred to the Emergency Department. He upon presentation felt like he had been at his baseline health otherwise; had no recent infectious type illnesses. He did have a history of hypertension, hyperlipidemia as well as atrial fibrillation. There were no new medications, had been on Eliquis for over a year because of the atrial fibrillation. Denied any hematochezia, melena, hematemesis, hematuria. Appetite has been good. No fevers, chills, aches. No recent travel. PAST MEDICAL HISTORY: Remarkable for AFib, hyperlipidemia, hypertension and pacemaker placement. He has had a hernia and eye surgery in the past. MEDICATIONS: Brought with the patient, listed on the computer and have been addressed. ALLERGIES: He has no known drug allergies. SOCIAL HISTORY: Noncontributory. FAMILY HISTORY: Noncontributory. REVIEW OF SYSTEMS: On the morning of my seeing and following morning is remarkable for him not being able to hit his mouth with his fork when he is trying to eat. He cannot open his right eye. He feels like his speech is disturbed and that these are all new since yesterday. OBJECTIVE: VITAL SIGNS: Stable. He is afebrile. CHEST: Clear. HEART: Irregular. ABDOMEN: Benign. EXTREMITIES: Without significant cyanosis, clubbing or edema. NEUROLOGIC: Remarkable for ptosis of the right eye with inability to open the same. He does have cerebellar signs present on his examination. He is awake, alert, oriented. Neurologic examination is otherwise nonfocal. LABORATORY DATA: Review of labs and investigations to date reveals a chemistry panel that is essentially unremarkable. 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 Platelet count was 5000 on admission, is 4000 this morning. White count has gone up from 9000 to 20,000, once again likely steroid related. CT head just done at the time of my initial visit and then I came back and saw him afterwards shows for 4 separate foci of acute hyperdense hemorrhages seen including the right side of the mid brain, the left cerebellum and both parietal lobes. His Eliquis is obviously on hold. Hematology has seen him and recommended IVIG in addition to the steroids. Neurology has been consulted with the CT findings. Platelets are ordered by myself upon seeing him and noting the CT findings. IMPRESSION: 1. Thrombocytopenia with intracranial hemorrhage as noted above. 2. Diffuse petechiae on skin. 3. Hypertension. 4. Hyperlipidemia. 5. Atrial fibrillation. PLAN: Neurology has been consulted. Hematology is onboard and their help is appreciated. Platelets will be given. IVIG has been ordered and will be ongoing. Case was discussed in detail with his son. CISCO PERALTA MD DR: SARA/yovana JOB#: [id number] / [id number] GEN Bang MD
[2018-03-06] MEDS: IMMUNE GLOBULIN,GAMMA(IGG) 10% 200 ML IV SCH (12:29)
[2018-03-06] MEDS ORDERED: levETIRAcetam 1,000 MG in IV DEXTROSE 5% 100ML 100 ML IV ONE (12:45)
--- NOTE | 2018-03-06 13:00 | PDOC2 ---
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 As a consequence he's had petechial hemorrhage on his legs and he said for intracranial hemorrhages. He has left sided ataxia and drift and decline in consciousness although still breathing on his own and able to wake up and follow commands. I will follow up with a CAT scan at 6 PM unless he deteriorates and we will do the CAT scan sooner. I will initiate levetiracetam as a seizure preventative given the cortical hemorrhages. If he deteriorates further we will need to consult neurosurgery. Current Medications Current Medications Current Medications Methylprednisolone Sodium Succinate (SOLU-Medrol 125MG VIAL) 125 mg 1X ONCE IV Last administered on 03/05/18at 11:48; Start 03/05/18 at 11:15; Stop 03/05/18 at 11:16; Status DC Ondansetron HCl (Zofran) 4 mg PRN Q8HRS PRN IV NAUSEA/VOMITING; Start 03/05/18 at 11:15; Stop 03/06/18 at 11:14; Status DC Acetaminophen (Tylenol) 650 mg PRN Q4HRS PRN PO FEVER; Start 03/05/18 at 11:15; Stop 03/06/18 at 11:14; Status DC Dexamethasone (Decadron) 40 mg DAILYWBKFT PO Last administered on 03/06/18at 09: 20; Start 03/06/18 at 08:00 Pantoprazole Sodium (Protonix) 40 mg DAILYAC PO Last administered on 03/06/18at 08:17; Start 03/05/18 at 16:30 Metoprolol Tartrate (Lopressor) 50 mg BID PO Last administered on 03/06/18at 08: 18; Start 03/05/18 at 21:00 Hydrochlorothiazide (Microzide) 12.5 mg DAILY PO Last administered on 03/06/18at 08:17; Start 03/05/18 at 17:00 Atorvastatin Calcium (Lipitor) 10 mg QHS PO Last administered on 03/05/18at 20:33 ; Start 03/05/18 at 21:00 Diltiazem HCl (Cardizem 24hr Cd) 180 mg DAILY PO Last administered on 03/06/18at 08:18; Start 03/05/18 at 17:00 Immune Globulin 200 ml @ 0 mls/hr DAILY@1200 IV Last administered on 03/06/18at 12:29; Start 03/06/18 at 12:00; Stop 03/10/18 at 11:59 Iohexol (Omnipaque 300 Mg/ml) 60 ml 1X ONCE IV Last administered on 03/06/18at 09:45; Start 03/06/18 at 09:45; Stop 03/06/18 at 09:46; Status DC Info (CONTRAST GIVEN -- Rx MONITORING) 1 each PRN DAILY PRN MC SEE COMMENTS; Start 03/06/18 at 09:45; Stop 03/08/18 at 09:44 Active Scripts Active Reported Eliquis (Apixaban) 2.5 Mg Tablet 2.5 Mg PO BID Cartia Xt (Diltiazem Hcl) 180 Mg Cap.er.24h 180 Mg PO Hydrochlorothiazide Tablet (Hydrochlorothiazide) 12.5 Mg Tablet 1 Tab PO DAILY Simvastatin 20 Mg Tablet 1 Tab PO QHS Metoprolol Tartrate 50 Mg Tablet 1 Tab PO BID Allergies Allergies: Coded Allergies: No Known Drug Allergies (Unverified , 03/05/18) Vitals VITALS Vital Signs Date Time Temp Pulse Resp B/P (MAP) Pulse Ox O2 Delivery O2 Flow Rate FiO2 03/06/18 11:27 97.9 70 24 124/68 (86) 94 Room Air 97.9 Labs Labs Laboratory Tests Test 03/05/18 09:50 03/05/18 19:45 03/06/18 02:25 03/06/18 03:00 White Blood Count 9.2 x10^3/uL (4.0-11.0) 6.3 x10^3/uL (4.0-11.0) Red Blood Count 5.26 x10^6/uL (4.30-5.70) 4.91 x10^6/uL (4.30-5.70) Hemoglobin 16.5 g/dL (13.0-17.5) 15.5 g/dL (13.0-17.5) Hematocrit 47.7 % (39.0-53.0) 44.5 % (39.0-53.0) Mean Corpuscular Volume 91 fL (79-100) 91 fL (79-100) Mean Corpuscular Hemoglobin 31 pg (25-35) 32 pg (25-35) Mean Corpuscular Hemoglobin Concent 35 g/dL (31-37) 35 g/dL (31-37) Red Cell Distribution Width 14.0 % (11.5-14.5) 14.1 % (11.5-14.5) Platelet Count 5 x10^3/uL (140-400) 3 x10^3/uL (140-400) 4 x10^3/uL (140-400) Neutrophils (%) (Auto) 67 % (31-73) 90 % (31-73) Lymphocytes (%) (Auto) 16 % (24-48) 9 % (24-48) Monocytes (%) (Auto) 11 % (0-9) 1 % (0-9) Eosinophils (%) (Auto) 6 % (0-3) 0 % (0-3) Basophils (%) (Auto) 1 % (0-3) 0 % (0-3) Neutrophils # (Auto) 6.1 x10^3uL (1.8-7.7) 5.7 x10^3uL (1.8-7.7) Lymphocytes # (Auto) 1.5 x10^3/uL (1.0-4.8) 0.6 x10^3/uL (1.0-4.8) Monocytes # (Auto) 1.0 x10^3/uL (0.0-1.1) 0.1 x10^3/uL (0.0-1.1) Eosinophils # (Auto) 0.6 x10^3/uL (0.0-0.7) 0.0 x10^3/uL (0.0-0.7) Basophils # (Auto) 0.1 x10^3/uL (0.0-0.2) 0.0 x10^3/uL (0.0-0.2) Platelet Estimate Decreased (ADEQUATE) Decreased (ADEQUATE) Prothrombin Time 14.2 SEC (11.7-14.0) Prothromb Time International Ratio 1.2 (0.8-1.1) Activated Partial Thromboplast Time 31 SEC (24-38) Fibrinogen 533 mg/dL (200-440) D-Dimer (Gill) 4.87 ug/mlFEU (0.00-0.50) Sodium Level 139 mmol/L (136-145) 137 mmol/L (136-145) Potassium Level 3.5 mmol/L (3.5-5.1) 3.5 mmol/L (3.5-5.1) Chloride Level 99 mmol/L (98-107) 100 mmol/L (98-107) Carbon Dioxide Level 32 mmol/L (21-32) 26 mmol/L (21-32) Anion Gap 8 (6-14) 11 (6-14) Blood Urea Nitrogen 18 mg/dL (8-26) 22 mg/dL (8-26) Creatinine 1.1 mg/dL (0.7-1.3) 1.2 mg/dL (0.7-1.3) Estimated GFR (Cockcroft-Gault) 63.5 57.4 Glucose Level 101 mg/dL (70-99) 177 mg/dL (70-99) Calcium Level 9.4 mg/dL (8.5-10.1) 8.8 mg/dL (8.5-10.1) Total Bilirubin 2.2 mg/dL (0.2-1.0) Direct Bilirubin 0.5 mg/dL (0.0-0.2) Aspartate Amino Transf (AST/SGOT) 19 U/L (15-37) Alanine Aminotransferase (ALT/SGPT) 27 U/L (16-63) Alkaline Phosphatase 75 U/L (46-116) Lactate Dehydrogenase 195 U/L (85-227) Total Protein 7.7 g/dL (6.4-8.2) Albumin 4.2 g/dL (3.4-5.0) Segmented Neutrophils % 88 % (35-66) Band Neutrophils % 3 % (0-9) Lymphocytes % 8 % (24-48) Myelocytes % 1 % (0-0) Poikilocytosis Slight Spherocytes Occ Test 03/06/18 10:55 White Blood Count 20.2 x10^3/uL (4.0-11.0) Red Blood Count 4.73 x10^6/uL (4.30-5.70) Hemoglobin 14.9 g/dL (13.0-17.5) Hematocrit 42.6 % (39.0-53.0) Mean Corpuscular Volume 90 fL (79-100) Mean Corpuscular Hemoglobin 32 pg (25-35) Mean Corpuscular Hemoglobin Concent 35 g/dL (31-37) Red Cell Distribution Width 13.8 % (11.5-14.5) Platelet Count 4 x10^3/uL (140-400) Prothrombin Time 14.8 SEC (11.7-14.0) Prothromb Time International Ratio 1.2 (0.8-1.1) Activated Partial Thromboplast Time 27 SEC (24-38) Sodium Level 136 mmol/L (136-145) Potassium Level 3.4 mmol/L (3.5-5.1) Chloride Level 100 mmol/L (98-107) Carbon Dioxide Level 28 mmol/L (21-32) Anion Gap 8 (6-14) Blood Urea Nitrogen 21 mg/dL (8-26) Creatinine 1.1 mg/dL (0.7-1.3) Estimated GFR (Cockcroft-Gault) 63.5 Glucose Level 173 mg/dL (70-99) Calcium Level 9.1 mg/dL (8.5-10.1) Laboratory Tests Test 03/05/18 19:45 03/06/18 02:25 03/06/18 03:00 03/06/18 10:55 White Blood Count 6.3 x10^3/uL (4.0-11.0) 20.2 x10^3/uL (4.0-11.0) Red Blood Count 4.91 x10^6/uL (4.30-5.70) 4.73 x10^6/uL (4.30-5.70) Hemoglobin 15.5 g/dL (13.0-17.5) 14.9 g/dL (13.0-17.5) Hematocrit 44.5 % (39.0-53.0) 42.6 % (39.0-53.0) Mean Corpuscular Volume 91 fL (79-100) 90 fL (79-100) Mean Corpuscular Hemoglobin 32 pg (25-35) 32 pg (25-35) Mean Corpuscular Hemoglobin Concent 35 g/dL (31-37) 35 g/dL (31-37) Red Cell Distribution Width 14.1 % (11.5-14.5) 13.8 % (11.5-14.5) Platelet Count 3 x10^3/uL (140-400) 4 x10^3/uL (140-400) 4 x10^3/uL (140-400) Neutrophils (%) (Auto) 90 % (31-73) Lymphocytes (%) (Auto) 9 % (24-48) Monocytes (%) (Auto) 1 % (0-9) Eosinophils (%) (Auto) 0 % (0-3) Basophils (%) (Auto) 0 % (0-3) Neutrophils # (Auto) 5.7 x10^3uL (1.8-7.7) Lymphocytes # (Auto) 0.6 x10^3/uL (1.0-4.8) Monocytes # (Auto) 0.1 x10^3/uL (0.0-1.1) Eosinophils # (Auto) 0.0 x10^3/uL (0.0-0.7) Basophils # (Auto) 0.0 x10^3/uL (0.0-0.2) Segmented Neutrophils % 88 % (35-66) Band Neutrophils % 3 % (0-9) Lymphocytes % 8 % (24-48) Myelocytes % 1 % (0-0) Platelet Estimate Decreased (ADEQUATE) Poikilocytosis Slight Spherocytes Occ Sodium Level 137 mmol/L (136-145) 136 mmol/L (136-145) Potassium Level 3.5 mmol/L (3.5-5.1) 3.4 mmol/L (3.5-5.1) Chloride Level 100 mmol/L (98-107) 100 mmol/L (98-107) Carbon Dioxide Level 26 mmol/L (21-32) 28 mmol/L (21-32) Anion Gap 11 (6-14) 8 (6-14) Blood Urea Nitrogen 22 mg/dL (8-26) 21 mg/dL (8-26) Creatinine 1.2 mg/dL (0.7-1.3) 1.1 mg/dL (0.7-1.3) Estimated GFR (Cockcroft-Gault) 57.4 63.5 Glucose Level 177 mg/dL (70-99) 173 mg/dL (70-99) Calcium Level 8.8 mg/dL (8.5-10.1) 9.1 mg/dL (8.5-10.1) Prothrombin Time 14.8 SEC (11.7-14.0) Prothromb Time International Ratio 1.2 (0.8-1.1) Activated Partial Thromboplast Time 27 SEC (24-38) JINNY ROSSI MD Mar 06, 2018 13:00
--- NOTE | 2018-03-06 15:51 | EKG ---
[facility] [address] [place] [address] Test Date: 2018-03-06 Test Time: 14:56:27 Pat Name: AUGUSTO MOSCOSO Department: Room: 111 1 Gender: M Social Work Manager: : 1930 Requested By: REYNALDO MCKEON Order Number: [id number] Reading MD: Saroj Calr MD Measurements Intervals [place] Rate: 85 P: RI: QRS: 57 QRSD: 190 T: -81 QT: 438 QTc: 528 Interpretive Statements A-V PACING Electronically Signed On 03-08-2018 12:10:10 CDT by Saroj Carl MD
--- NOTE | 2018-03-06 18:20 | RAD ---
Examination: CT head without contrast HISTORY: History follow-up intracranial bleed COMPARISON: Same day exam 9:13 AM Exposure: One or more of the following individualized dose reduction techniques were utilized for this examination: 1. Automated exposure control 2. Adjustment of the mA and/or kV according to patient size 3. Use of iterative reconstruction technique TECHNIQUE: Axial CT images of the head was performed without contrast. FINDINGS: There is no evidence of midline shift. There is a 2 cm hyperdensity identified in the left cerebellum, 1.5 cm hyperdensity identified in the right midbrain and small subcortical hyperdensities identified in the left frontal and punctate deep bilateral parietal lobes similar to prior exam likely foci of intracerebral bleed similar to prior exam. No evidence of midline shift. The visualized lateral ventricles, third ventricle, fourth ventricle appropriate for age. The basal cisterns are uneffaced. Moderate mucosal thickening identified in the bilateral ethmoidal sinuses, maxillary sinuses likely sinus disease IMPRESSION: Unchanged foci of intracerebral bleed as described above. Electronically signed by: Loyd Alvarado MD (03/06/2018 6:17 PM) [facility]
[2018-03-06] MEDS: POTASSIUM CL 20MEQ D5-0.45NACL 1,000 ML IV SCH (18:38)
[2018-03-06] MEDS ORDERED: LABETALOL 20 MG/4 ML DISP.SYRIN. IVP PRN (18:45)
[2018-03-06] MEDS: ATORVASTATIN CALCIUM 10 MG TABLET. PO SCH (20:48)
[2018-03-06] MEDS: levETIRAcetam 500 MG in IV DEXTROSE 5% 100ML 100 ML IV SCH (21:07)
[2018-03-07] VITALS (24 sets, daily range): BP systolic 102–129; BP diastolic 5–65
[2018-03-07] MEDS: POTASSIUM CL 20MEQ D5-0.45NACL 1,000 ML IV SCH ×3 (05:20→19:36)
[2018-03-07 06:53] LABS: BASO # 0.1 x10^3/uL (0.0-0.2); BASO % 0 % (0-3); EOS % 0 % (0-3); HEMATOCRIT 39.6 % (39.0-53.0); HEMOGLOBIN 13.5 g/dL (13.0-17.5); LYMPH % 4 % (24-48); MEAN CORPUSCULAR HEMOGLOBIN 31 pg (25-35); MEAN CORPUSCULAR HGB CONC 34 g/dL (31-37); MEAN CORPUSCULAR VOLUME 90 fL (79-100); MONO # 0.9 x10^3/uL (0.0-1.1); MONO % 3 % (0-9); NEUT # 23.9 x10^3uL (1.8-7.7); NEUT % 93 % (31-73); PLATELET COUNT 65 x10^3/uL (140-400); RED BLOOD COUNT 4.39 x10^6/uL (4.30-5.70); WHITE BLOOD COUNT 25.9 x10^3/uL (4.0-11.0)
[2018-03-07 07:20] LABS: ALBUMIN 3.3 g/dL (3.4-5.0); ALBUMIN/GLOBULIN RATIO 0.9 (1.0-1.7); CALCIUM 8.6 mg/dL (8.5-10.1); GFR 70.8; POTASSIUM 3.6 mmol/L (3.5-5.1); TOTAL BILIRUBIN 1.2 mg/dL (0.2-1.0)
[2018-03-07] MEDS ORDERED: PANTOPRAZOLE IV PUSH 40 MG VIAL. IVP SCH (09:00)
[2018-03-07] MEDS: METOPROLOL TART IMMED RELEASE 50 MG TABLET. PO SCH ×2 (09:00→20:30)
[2018-03-07] MEDS: hydroCHLOROthiazide 12.5 MG CAPSULE PO SCH (09:00)
[2018-03-07 09:19] LABS: % BANDS 9 % (0-9); % LYMPHS 3 % (24-48); % MONOS 4 % (0-10); % SEGS 84 % (35-66)
[2018-03-07 09:20] LABS: PLT ESTIMATE DECREASED (ADEQUATE)
--- NOTE | 2018-03-07 09:47 | PDOC ---
Provider Note Provider Note [id number] GEN PILLAI MD Mar 07, 2018 09:47
[2018-03-07] MEDS: DEXAMETHASONE SOD PHOS 20 MG/5 ML VIAL. IV SCH (10:09)
[2018-03-07] MEDS: levETIRAcetam 500 MG in IV DEXTROSE 5% 100ML 100 ML IV SCH ×2 (10:09→20:30)
--- NOTE | 2018-03-07 12:48 | PN ---
DATE: 03/07/2018 SUBJECTIVE: He was transferred after CT scan showed different areas of focal hemorrhage on both sides and some left-sided ataxia and right eye droop. He also had a fall during the night, with no apparent injury, except for nasal laceration. He is awake and alert, moves all extremities equally and aside from the right pupil dilation, which is of unknown duration, he is able to see out of both eyes. He has no complaints of headache and he is oriented and hungry. His purpuric lesions in the legs are more pronounced, but not more severe and no sign of other bleeding from any orifice. Platelets are up to 65,000 this morning after steroids and IVIG and will remain in the ICU, pending swallow evaluation with supportive care and IV Protonix as well. Advance diet if he tolerates swallowing and continue IV Keppra as well prophylaxis. GEN PILLAI MD DR: FLACO/yovana JOB#: [id number] / [id number]
--- NOTE | 2018-03-07 13:08 | PDOC ---
SUBJECTIVE Subjective Unable to get MRI due to pacemaker, but CT head showed four different areas of ICH, which is rare for ITP (usually <5%) Stroke protocol activated, transferred to ICU and rec'd plts there for major bleed assoc with ITP; repeat CT head done later in the day showed relative stability Plts up to 65K this morning. Decadron transitioned to IV formulation until swallow study results were available. Already got IVIG today too. He tried to get out of his bed this morning and go see some "commotion" in his room, so fell on his nose, causing some epistaxis - this area continues to ooze some blood. His blood blisters on lip and mouth are much better. OBJECTIVE Vital Signs Vital Signs Date Time Temp Pulse Resp B/P (MAP) Pulse Ox O2 Delivery O2 Flow Rate FiO2 03/07/18 12:00 98.0 71 16 110/57 (74) 94 Room Air 98.0 03/07/18 12:00 Venturi Mask 12.0 03/07/18 11:00 73 16 129/56 (80) 94 Room Air 03/07/18 10:00 73 16 118/64 (82) 93 Room Air 03/07/18 09:00 71 16 117/60 (79) 95 Venturi Mask 12.0 03/07/18 08:00 Venturi Mask 12.0 03/07/18 08:00 71 16 113/56 (75) 95 Venturi Mask 12.0 03/07/18 07:00 98.0 71 16 108/56 (73) 95 Venturi Mask 12.0 98.0 03/07/18 06:00 71 16 110/56 (74) 95 Venturi Mask 12.0 03/07/18 05:00 71 18 108/60 (76) 93 Venturi Mask 12.0 03/07/18 04:00 Venturi Mask 12.0 03/07/18 04:00 97.9 69 16 112/59 (76) 95 Venturi Mask 12.0 97.9 03/07/18 03:00 71 17 112/60 (77) 94 Venturi Mask 12.0 03/07/18 02:00 70 25 127/64 (85) 91 Room Air 03/07/18 01:00 70 15 107/55 (72) 91 Room Air 03/07/18 00:00 98.0 69 15 102/49 (66) 92 Nasal Cannula 2.0 98.0 03/07/18 00:00 Nasal Cannula 2.0 03/06/18 23:00 69 15 108/50 (69) 92 Nasal Cannula 2.0 03/06/18 22:00 71 16 113/60 (77) 92 Nasal Cannula 2.0 03/06/18 21:00 70 17 112/62 (79) 93 Nasal Cannula 2.0 03/06/18 20:48 69 112/62 03/06/18 20:00 97.6 70 15 117/64 (81) 91 Nasal Cannula 2.0 97.6 03/06/18 20:00 Nasal Cannula 2.0 03/06/18 19:00 69 14 118/64 (82) 91 Nasal Cannula 2.0 03/06/18 18:00 70 20 120/63 (82) 95 Nasal Cannula 2.0 03/06/18 17:00 68 20 120/63 (82) 95 Nasal Cannula 2.0 03/06/18 16:00 68 20 105/57 (73) 95 Nasal Cannula 2.0 03/06/18 16:00 Nasal Cannula 2.0 03/06/18 15:00 68 20 116/62 (80) 95 Nasal Cannula 2.0 03/06/18 14:00 98.1 68 20 139/64 (89) 96 Nasal Cannula 2.0 98.1 03/06/18 13:30 68 20 117/60 (79) 96 Nasal Cannula 2.0 I & O Intake and Output 03/07/18 07:00 Intake Total 2001.0 ml Output Total 2100 ml Balance -99.0 ml Intake Oral 0 ml IV Total 1781.0 ml Blood Product IV Normal Saline Flush 220 ml Output Urine Total 2100 ml PHYSICAL EXAM Physical Exam aao x 3, cooperative, very talkative; daughter and niece in room with him trauma noted on bridge of nose, but blood blisters in mouth and lip are much less prominent, still has R ptosis, not using oxygen lungs CTA reg rate no ab tenderness or bruising no c/c/e, petechial rash BLE ASSESSMENT/PLAN Assessment/Plan 87 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 Would like to continue these two measures for four days at least, through 03/09/18. Repeat platelet transfusion only if neurological status declines further. I do not think we need to repeat platelet transfusions for the epistaxis. Certainly appreciate ICU care over last 24 hrs, as he is doing better. He will need speech path, OT, PT help over next few weeks likely. Swallow eval already done this morning. Will continue to follow. Domenica, cell [phone] COMMENT Lab Laboratory Tests Test 03/06/18 14:00 03/07/18 06:30 Nasal Screen MRSA (PCR) Negative (Negative) White Blood Count 25.9 x10^3/uL (4.0-11.0) Red Blood Count 4.39 x10^6/uL (4.30-5.70) Hemoglobin 13.5 g/dL (13.0-17.5) Hematocrit 39.6 % (39.0-53.0) Mean Corpuscular Volume 90 fL (79-100) Mean Corpuscular Hemoglobin 31 pg (25-35) Mean Corpuscular Hemoglobin Concent 34 g/dL (31-37) Red Cell Distribution Width 14.0 % (11.5-14.5) Platelet Count 65 x10^3/uL (140-400) Neutrophils (%) (Auto) 93 % (31-73) Lymphocytes (%) (Auto) 4 % (24-48) Monocytes (%) (Auto) 3 % (0-9) Eosinophils (%) (Auto) 0 % (0-3) Basophils (%) (Auto) 0 % (0-3) Neutrophils # (Auto) 23.9 x10^3uL (1.8-7.7) Lymphocytes # (Auto) 1.0 x10^3/uL (1.0-4.8) Monocytes # (Auto) 0.9 x10^3/uL (0.0-1.1) Eosinophils # (Auto) 0.0 x10^3/uL (0.0-0.7) Basophils # (Auto) 0.1 x10^3/uL (0.0-0.2) Segmented Neutrophils % 84 % (35-66) Band Neutrophils % 9 % (0-9) Lymphocytes % 3 % (24-48) Monocytes % 4 % (0-10) Platelet Estimate Decreased (ADEQUATE) Large Platelets Occ Sodium Level 136 mmol/L (136-145) Potassium Level 3.6 mmol/L (3.5-5.1) Chloride Level 101 mmol/L (98-107) Carbon Dioxide Level 28 mmol/L (21-32) Anion Gap 7 (6-14) Blood Urea Nitrogen 28 mg/dL (8-26) Creatinine 1.0 mg/dL (0.7-1.3) Estimated GFR (Cockcroft-Gault) 70.8 BUN/Creatinine Ratio 28 (6-20) Glucose Level 166 mg/dL (70-99) Calcium Level 8.6 mg/dL (8.5-10.1) Total Bilirubin 1.2 mg/dL (0.2-1.0) Aspartate Amino Transf (AST/SGOT) 15 U/L (15-37) Alanine Aminotransferase (ALT/SGPT) 25 U/L (16-63) Alkaline Phosphatase 60 U/L (46-116) Total Protein 7.0 g/dL (6.4-8.2) Albumin 3.3 g/dL (3.4-5.0) Albumin/Globulin Ratio 0.9 (1.0-1.7) Imaging CT head yest morning: There is hyperdense acute hemorrhage within the right side of the midbrain measuring 15 mm. There is acute hyperdense hemorrhage within the medial posterior aspect of the left cerebellum measuring 21 mm. There is a small peripheral subcortical hyperdense petechial hemorrhage within the anterior left parietal lobe measuring 5 mm. There is a small subcortical hyperdense petechial hemorrhage within the upper right parietal lobe medially measuring 5 mm in size. No enhancement of these areas is seen outside of the hyperdense hemorrhage. No other intracranial hemorrhage or intracranial contrast enhancing lesion is seen. No midline shift or significant mass effect is seen. No extra- axial fluid collection is seen. No hydrocephalus is evident. Mild periventricular white matter hypodensity is seen bilaterally consistent with mild chronic small vessel ischemic disease in this age group. There is mild mucosal thickening of the ethmoid sinuses bilaterally. Maxillary sinuses are not completely seen in this study. Middle ear cavities and mastoid sinuses are clear. No skull fracture or pneumocephalus is seen. CT head last night: There is no evidence of midline shift. There is a 2 cm hyperdensity identified in the left cerebellum, 1.5 cm hyperdensity identified in the right midbrain and small subcortical hyperdensities identified in the left frontal and punctate deep bilateral parietal lobes similar to prior exam likely foci of intracerebral bleed similar to prior exam. No evidence of midline shift. The visualized lateral ventricles, third ventricle, fourth ventricle appropriate for age. The basal cisterns are uneffaced. Moderate mucosal thickening identified in the bilateral ethmoidal sinuses, maxillary sinuses likely sinus disease REYNALDO MCKEON MD Mar 07, 2018 13:08
[2018-03-07] MEDS: IMMUNE GLOBULIN,GAMMA(IGG) 10% 200 ML IV SCH (13:34)
--- NOTE | 2018-03-07 20:14 | CONS ---
DATE OF CONSULTATION: 03/06/2018 REFERRING PHYSICIAN: Dr. Charles Gregg. 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 HISTORY OF PRESENT ILLNESS: The patient is an 87-year-old man who developed a large petechial hemorrhage in the mouth and lips and a rash on the legs. He went to his primary care physician's office on 03/04/2018. Labs were drawn, which showed thrombocytopenia and he was told to go to the Emergency Room. He came to the Emergency Room on 03/05/2018 and was found to have a platelet count of 5. He was given Solu-Medrol. There has been yet no response in the platelet count. On the day of this consultation, he was unable to open his right eye without exudate or hemorrhage. He started to experience a decline in consciousness, so a CT scan of the head was performed, which revealed four areas of intracranial hemorrhage. He was transferred down to the Intensive Care Unit. PAST MEDICAL HISTORY: 1. 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 2. Hypertension. 3. Hyperlipidemia. 4. Hernia surgery. 5. History of eye surgery. ALLERGIES: No known allergies to drugs. MEDICATIONS PRIOR TO ADMISSION: Apixaban 2.5 mg twice per day, diltiazem 180 mg, hydrochlorothiazide, metoprolol, and simvastatin. FAMILY HISTORY: Noncontributory. SOCIAL HISTORY: He quit smoking tobacco remotely. He does not drink alcohol or use recreational drugs. He is and has children. REVIEW OF SYSTEMS: He does not complain of a headache. He is a very limited historian. He states that his pupils have been unequal since he had cataract surgery on the left eye. He is not complaining of shortness of breath, chest or abdominal pain. He denies any gastrointestinal or genitourinary complaints. He has had a rash with petechial hemorrhage. PHYSICAL EXAMINATION: VITAL SIGNS: The blood pressure was 124/68, pulse 70, respirations 24, temperature 97.9 degrees Fahrenheit. Oximetry was 94% on room air. GENERAL: He maintained his eyes closed. When asked to open his eyes, he really could not. When I held open the eyes while looking straight ahead, they were conjugate. He was able to speak, but the speech was dysarthric. He was able to respond to commands and answer questions appropriately. He appeared well groomed and well nourished. He was oriented. NEUROLOGIC: Examination of the cranial nerves revealed visual castillo appeared intact. He was able to move his left eye, but right eye movement was severely impaired. Pupils were asymmetric with the left pupil being 2 mm and the right pupil being 4. Funduscopic exam on the right eye did not reveal papilledema, exudate, or hemorrhage. I was not able to get a good look in the left eye. Facial sensation was intact bilaterally. Muscles of mastication were powerful symmetrically. Hearing was intact to finger rub. The muscles of facial expression revealed some droop with some delay of initiation and weakness on the left face with smile. Tongue was midline with full range of motion. Muscle bulk and tone was normal. There was some left-sided drift. Power was full and symmetric. It took some coaching to make him attend to the task. Reflexes were 2/4 and symmetric in the upper extremities and at the knees, absent at the ankles. Toes were not upgoing. Coordination testing revealed deficits on the left side with [id number], [id number], and fine motor with ataxia on the left. Right side did not have ataxia. Sensory exam was intact to pain, light touch, cold thermal, and vibration bilaterally. Corneal reflex was present bilaterally and symmetrically. Gait was not testable. Auscultation of the carotid arteries did not reveal a bruit. Heart rhythm felt regular without a murmur. Peripheral pulses were diminished in the left wrist, not palpable in the right wrist or at either ankle. The extremities, however, were warm. There was a purpura rash primarily on the legs. REVIEW OF LABORATORY DATA: The CBC revealed an elevated white count of 20.2 with a normal hemoglobin and hematocrit. Platelet count was 4. Sodium was normal, potassium low at 3.4. Chloride and CO2 were normal. BUN and creatinine were normal. GFR calculated at 63.5. Glucose was elevated at 173. Calcium was normal. Total bilirubin was elevated at 2.2 and direct at 0.5 with the remainder of the liver enzymes not elevated. The PT/INR today was 1.2 and PTT was 27. I reviewed the CT scan of the brain at length. This revealed four separate intracranial hemorrhages. Two cortical that were small. The one just above the right mid brain and one in the left cerebellum were larger. IMPRESSION: The patient is an 87-year-old man with idiopathic thrombocytopenic purpura, which is being treated by the security inspector. Unfortunately, it may take a little time for him to respond to treatment. As a consequence of this disease process, he has suffered 4 intracranial hemorrhages. The intracranial hemorrhages, which are likely causing him the most difficulty, is the left cerebellum as evidenced by the ataxia on the left side and in the right mid brain region. This is causing eye movement abnormalities and likely a decline in consciousness. The cortical lesions put him at risk for having seizure. If the hemorrhages were to remain stable at the current state then I feel the prognosis for recovery can be favorable. If he were to hemorrhage further into the lesions in the posterior fossa, then this could be a lethal situation. RECOMMENDATIONS: I have asked the nurse to make certain that the security inspector is aware of the decline in status to determine if this will change any treatment. He has appropriately been transferred to the Intensive Care Unit. He will be closely monitored as he may require intubation. I will follow up with a CT scan of the head at 6[facility] allow for some time interval. If he further declines, we can repeat the CAT scan of the head sooner. I will give him a dosage of levetiracetam at 1000 mg IV followed by 500 mg IV every 12 hours. I spoke with the and daughter at bedside and explained the situation quite clearly. I will be happy to reevaluate. Should there be further decline, we may require neurosurgical intervention. JINNY ROSSI MD DR: GINO/yovana JOB#: [id number] / [id number] Marcio Toledo M.D., FERILYN MD
--- NOTE | 2018-03-07 20:16 | PDOC ---
PROGRESS NOTES Assessment 1. 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 2 of the hemorrhages are symptomatic with the midbrain causing eye movement abnormality in the cerebellum causing coordination changes. Fortunately, the platelets counts are already responding to the treatment orchestrated by the supervisor maintenance. A follow- up CAT scan of the brain did not reveal any change in the size of the hemorrhages. 2. 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 3. 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 4. Prognosis for recovery from these neurologic insults is still favorable. Plan 1. He will continue treatment for the idiopathic thrombocytopenic purpura by the supervisor maintenance. 2. Once he is more stable we will need to initiate rehabilitation with speech, physical and occupational therapies. Ultimately he will require a rehabilitation stay. 3. We will continue intravenous levetiracetam until he is able to swallow and then we will switch it to the oral route. I would anticipate he will be on this medication for 4-8 weeks. Subjective I don't have any pain or headache. I'm not having any double vision. Objective Vital Signs Date Time Temp Pulse Resp B/P (MAP) Pulse Ox O2 Delivery O2 Flow Rate FiO2 03/07/18 19:00 72 21 115/53 (73) 96 Room Air 03/07/18 16:00 98.3 98.3 03/07/18 12:00 12.0 Intake and Output 03/07/18 07:00 Intake Total 2001.0 ml Output Total 2100 ml Balance -99.0 ml Intake Oral 0 ml IV Total 1781.0 ml Blood Product IV Normal Saline Flush 220 ml Output Urine Total 2100 ml PHYSICAL EXAM He was sleepy and had difficulty opening his eyes. With effort he could open his eyes and look at the examiner. When the eyes were checked monocular Fred he did not have left gaze with either eye. With left gaze of the left eye there was some nice nystagmus. Facial sensation was intact. He had delay of initiation of left smile. Hearing was intact to finger rub. The palate arch symmetrically and the tongue was midline with full range of motion. Muscle bulk was symmetric. Tone was not spastic or rigid. There was right arm and leg drift. Power was fairly full to manual testing. Coordination testing with finger to nose and heel to bustamante had ataxia on the left side. Sensory examination was intact to light touch and sharp. Review of Relevant I have reviewed the following items mei (where applicable) has been applied. Labs Laboratory Tests Test 03/06/18 02:25 03/06/18 03:00 03/06/18 10:55 03/06/18 11:00 Sodium Level 137 mmol/L (136-145) 136 mmol/L (136-145) Potassium Level 3.5 mmol/L (3.5-5.1) 3.4 mmol/L (3.5-5.1) Chloride Level 100 mmol/L (98-107) 100 mmol/L (98-107) Carbon Dioxide Level 26 mmol/L (21-32) 28 mmol/L (21-32) Anion Gap 11 (6-14) 8 (6-14) Blood Urea Nitrogen 22 mg/dL (8-26) 21 mg/dL (8-26) Creatinine 1.2 mg/dL (0.7-1.3) 1.1 mg/dL (0.7-1.3) Estimated GFR (Cockcroft-Gault) 57.4 63.5 Glucose Level 177 mg/dL (70-99) 173 mg/dL (70-99) Calcium Level 8.8 mg/dL (8.5-10.1) 9.1 mg/dL (8.5-10.1) Platelet Count 4 x10^3/uL (140-400) 4 x10^3/uL (140-400) White Blood Count 20.2 x10^3/uL (4.0-11.0) Red Blood Count 4.73 x10^6/uL (4.30-5.70) Hemoglobin 14.9 g/dL (13.0-17.5) Hematocrit 42.6 % (39.0-53.0) Mean Corpuscular Volume 90 fL (79-100) Mean Corpuscular Hemoglobin 32 pg (25-35) Mean Corpuscular Hemoglobin Concent 35 g/dL (31-37) Red Cell Distribution Width 13.8 % (11.5-14.5) Prothrombin Time 14.8 SEC (11.7-14.0) Prothromb Time International Ratio 1.2 (0.8-1.1) Activated Partial Thromboplast Time 27 SEC (24-38) Glucose (Fingerstick) 157 mg/dL (70-99) Test 03/06/18 14:00 03/07/18 06:30 Nasal Screen MRSA (PCR) Negative (Negative) White Blood Count 25.9 x10^3/uL (4.0-11.0) Red Blood Count 4.39 x10^6/uL (4.30-5.70) Hemoglobin 13.5 g/dL (13.0-17.5) Hematocrit 39.6 % (39.0-53.0) Mean Corpuscular Volume 90 fL (79-100) Mean Corpuscular Hemoglobin 31 pg (25-35) Mean Corpuscular Hemoglobin Concent 34 g/dL (31-37) Red Cell Distribution Width 14.0 % (11.5-14.5) Platelet Count 65 x10^3/uL (140-400) Neutrophils (%) (Auto) 93 % (31-73) Lymphocytes (%) (Auto) 4 % (24-48) Monocytes (%) (Auto) 3 % (0-9) Eosinophils (%) (Auto) 0 % (0-3) Basophils (%) (Auto) 0 % (0-3) Neutrophils # (Auto) 23.9 x10^3uL (1.8-7.7) Lymphocytes # (Auto) 1.0 x10^3/uL (1.0-4.8) Monocytes # (Auto) 0.9 x10^3/uL (0.0-1.1) Eosinophils # (Auto) 0.0 x10^3/uL (0.0-0.7) Basophils # (Auto) 0.1 x10^3/uL (0.0-0.2) Segmented Neutrophils % 84 % (35-66) Band Neutrophils % 9 % (0-9) Lymphocytes % 3 % (24-48) Monocytes % 4 % (0-10) Platelet Estimate Decreased (ADEQUATE) Large Platelets Occ Sodium Level 136 mmol/L (136-145) Potassium Level 3.6 mmol/L (3.5-5.1) Chloride Level 101 mmol/L (98-107) Carbon Dioxide Level 28 mmol/L (21-32) Anion Gap 7 (6-14) Blood Urea Nitrogen 28 mg/dL (8-26) Creatinine 1.0 mg/dL (0.7-1.3) Estimated GFR (Cockcroft-Gault) 70.8 BUN/Creatinine Ratio 28 (6-20) Glucose Level 166 mg/dL (70-99) Calcium Level 8.6 mg/dL (8.5-10.1) Total Bilirubin 1.2 mg/dL (0.2-1.0) Aspartate Amino Transf (AST/SGOT) 15 U/L (15-37) Alanine Aminotransferase (ALT/SGPT) 25 U/L (16-63) Alkaline Phosphatase 60 U/L (46-116) Total Protein 7.0 g/dL (6.4-8.2) Albumin 3.3 g/dL (3.4-5.0) Albumin/Globulin Ratio 0.9 (1.0-1.7) Laboratory Tests Test 03/07/18 06:30 White Blood Count 25.9 x10^3/uL (4.0-11.0) Red Blood Count 4.39 x10^6/uL (4.30-5.70) Hemoglobin 13.5 g/dL (13.0-17.5) Hematocrit 39.6 % (39.0-53.0) Mean Corpuscular Volume 90 fL (79-100) Mean Corpuscular Hemoglobin 31 pg (25-35) Mean Corpuscular Hemoglobin Concent 34 g/dL (31-37) Red Cell Distribution Width 14.0 % (11.5-14.5) Platelet Count 65 x10^3/uL (140-400) Neutrophils (%) (Auto) 93 % (31-73) Lymphocytes (%) (Auto) 4 % (24-48) Monocytes (%) (Auto) 3 % (0-9) Eosinophils (%) (Auto) 0 % (0-3) Basophils (%) (Auto) 0 % (0-3) Neutrophils # (Auto) 23.9 x10^3uL (1.8-7.7) Lymphocytes # (Auto) 1.0 x10^3/uL (1.0-4.8) Monocytes # (Auto) 0.9 x10^3/uL (0.0-1.1) Eosinophils # (Auto) 0.0 x10^3/uL (0.0-0.7) Basophils # (Auto) 0.1 x10^3/uL (0.0-0.2) Segmented Neutrophils % 84 % (35-66) Band Neutrophils % 9 % (0-9) Lymphocytes % 3 % (24-48) Monocytes % 4 % (0-10) Platelet Estimate Decreased (ADEQUATE) Large Platelets Occ Sodium Level 136 mmol/L (136-145) Potassium Level 3.6 mmol/L (3.5-5.1) Chloride Level 101 mmol/L (98-107) Carbon Dioxide Level 28 mmol/L (21-32) Anion Gap 7 (6-14) Blood Urea Nitrogen 28 mg/dL (8-26) Creatinine 1.0 mg/dL (0.7-1.3) Estimated GFR (Cockcroft-Gault) 70.8 BUN/Creatinine Ratio 28 (6-20) Glucose Level 166 mg/dL (70-99) Calcium Level 8.6 mg/dL (8.5-10.1) Total Bilirubin 1.2 mg/dL (0.2-1.0) Aspartate Amino Transf (AST/SGOT) 15 U/L (15-37) Alanine Aminotransferase (ALT/SGPT) 25 U/L (16-63) Alkaline Phosphatase 60 U/L (46-116) Total Protein 7.0 g/dL (6.4-8.2) Albumin 3.3 g/dL (3.4-5.0) Albumin/Globulin Ratio 0.9 (1.0-1.7) Medications Current Medications Methylprednisolone Sodium Succinate (SOLU-Medrol 125MG VIAL) 125 mg 1X ONCE IV Last administered on 03/05/18at 11:48; Start 03/05/18 at 11:15; Stop 03/05/18 at 11:16; Status DC Ondansetron HCl (Zofran) 4 mg PRN Q8HRS PRN IV NAUSEA/VOMITING; Start 03/05/18 at 11:15; Stop 03/06/18 at 11:14; Status DC Acetaminophen (Tylenol) 650 mg PRN Q4HRS PRN PO FEVER; Start 03/05/18 at 11:15; Stop 03/06/18 at 11:14; Status DC Dexamethasone (Decadron) 40 mg DAILYWBKFT PO Last administered on 03/06/18at 09: 20; Start 03/06/18 at 08:00; Stop 03/06/18 at 16:54; Status DC Pantoprazole Sodium (Protonix) 40 mg DAILYAC PO Last administered on 03/06/18at 08:17; Start 03/05/18 at 16:30; Stop 03/06/18 at 17:23; Status DC Metoprolol Tartrate (Lopressor) 50 mg BID PO Last administered on 03/06/18at 08: 18; Start 03/05/18 at 21:00 Hydrochlorothiazide (Microzide) 12.5 mg DAILY PO Last administered on 03/06/18at 08:17; Start 03/05/18 at 17:00 Atorvastatin Calcium (Lipitor) 10 mg QHS PO Last administered on 03/05/18at 20:33 ; Start 03/05/18 at 21:00 Diltiazem HCl (Cardizem 24hr Cd) 180 mg DAILY PO Last administered on 03/06/18at 08:18; Start 03/05/18 at 17:00 Immune Globulin 200 ml @ 0 mls/hr DAILY@1200 IV Last administered on 03/07/18at 13:34; Start 03/06/18 at 12:00; Stop 03/10/18 at 11:59 Iohexol (Omnipaque 300 Mg/ml) 60 ml 1X ONCE IV Last administered on 03/06/18at 09:45; Start 03/06/18 at 09:45; Stop 03/06/18 at 09:46; Status DC Info (CONTRAST GIVEN -- Rx MONITORING) 1 each PRN DAILY PRN MC SEE COMMENTS; Start 03/06/18 at 09:45; Stop 03/08/18 at 09:44 Levetiracetam 1000 mg/Dextrose 110 ml @ 440 mls/hr 1X ONCE IV Last administered on 03/06/18at 13:04; Start 03/06/18 at 12:45; Stop 03/06/18 at 12:59; Status DC Levetiracetam 500 mg/Dextrose 105 ml @ 420 mls/hr Q12HR IV Last administered on 03/07/18at 10:09; Start 03/06/18 at 21:00 Dexamethasone Sodium Phosphate (Decadron) 40 mg DAILY IV Last administered on at 10:09; Start 03/07/18 at 09:00 Pantoprazole Sodium (PROTONIX VIAL for IV PUSH) 40 mg DAILY IVP Last administered on 03/07/18at 10:08; Start 03/07/18 at 09:00 Potassium Chloride/Dextrose/ Sod Cl 1,000 ml @ 100 mls/hr Q10H IV Last administered on 03/07/18at 19:36; Start 03/06/18 at 18:00 Labetalol HCl (Normodyne Iv Push) 10 mg PRN Q2HRS PRN IVP HYPERTENSION, SEE COMMENTS; Start 03/06/18 at 18:45 Active Scripts Active Reported Eliquis (Apixaban) 2.5 Mg Tablet 2.5 Mg PO BID Cartia Xt (Diltiazem Hcl) 180 Mg Cap.er.24h 180 Mg PO Hydrochlorothiazide Tablet (Hydrochlorothiazide) 12.5 Mg Tablet 1 Tab PO DAILY Simvastatin 20 Mg Tablet 1 Tab PO QHS Metoprolol Tartrate 50 Mg Tablet 1 Tab PO BID Vitals/I & O Vital Sign - Last 24 Hours 03/06/18 03/06/18 03/06/18 03/06/18 20:48 21:00 22:00 23:00 Pulse 69 70 71 69 Resp 17 16 15 B/P (MAP) 112/62 112/62 (79) 113/60 (77) 108/50 (69) Pulse Ox 93 92 92 O2 Delivery Nasal Cannula Nasal Cannula Nasal Cannula O2 Flow Rate 2.0 2.0 2.0 03/07/18 03/07/18 03/07/18 03/07/18 00:00 00:00 01:00 02:00 Temp 98.0 98.0 Pulse 69 70 70 Resp 15 15 25 B/P (MAP) 102/49 (66) 107/55 (72) 127/64 (85) Pulse Ox 92 91 91 O2 Delivery Nasal Cannula Nasal Cannula Room Air Room Air O2 Flow Rate 2.0 2.0 03/07/18 03/07/18 03/07/18 03/07/18 03:00 04:00 04:00 05:00 Temp 97.9 97.9 Pulse 71 69 71 Resp 17 16 18 B/P (MAP) 112/60 (77) 112/59 (76) 108/60 (76) Pulse Ox 94 95 93 O2 Delivery Venturi Mask Venturi Mask Venturi Mask Venturi Mask O2 Flow Rate 12.0 12.0 12.0 12.0 9/3/18 9/3/18 9/3/18 9/3/18 06:00 07:00 08:00 08:00 Temp 98.0 98.0 Pulse 71 71 71 Resp 16 16 16 B/P (MAP) 110/56 (74) 108/56 (73) 113/56 (75) Pulse Ox 95 95 95 O2 Delivery Venturi Mask Venturi Mask Venturi Mask Venturi Mask O2 Flow Rate 12.0 12.0 12.0 12.0 03/07/18 03/07/18 03/07/18 03/07/18 09:00 10:00 11:00 12:00 Pulse 71 73 73 Resp 16 16 16 B/P (MAP) 117/60 (79) 118/64 (82) 129/56 (80) Pulse Ox 95 93 94 O2 Delivery Venturi Mask Room Air Room Air Venturi Mask O2 Flow Rate 12.0 12.0 03/07/18 03/07/18 03/07/18 03/07/18 12:00 13:00 14:00 15:00 Temp 98.0 98.0 Pulse 71 73 71 77 Resp 16 16 16 16 B/P (MAP) 110/57 (74) 126/61 (82) 119/51 (73) 119/62 (81) Pulse Ox 94 95 95 95 O2 Delivery Room Air Room Air Room Air Room Air 03/07/18 03/07/18 03/07/18 03/07/18 16:00 16:00 17:00 18:00 Temp 98.3 98.3 Pulse 70 73 71 Resp 16 14 19 B/P (MAP) 125/65 (85) 122/64 (83) 119/63 (81) Pulse Ox 93 96 99 O2 Delivery Room Air Room Air Room Air Room Air 03/07/18 19:00 Pulse 72 Resp 21 B/P (MAP) 115/53 (73) Pulse Ox 96 O2 Delivery Room Air Intake and Output 03/06/18 03/06/18 03/07/18 15:00 23:00 07:00 Intake Total 720 ml 1281.0 ml Output Total 300 ml 1300 ml 500 ml Balance -300 ml -580 ml 781.0 ml JINNY ROSSI MD Mar 07, 2018 20:16
[2018-03-07] MEDS: ATORVASTATIN CALCIUM 10 MG TABLET. PO SCH (20:30)
[2018-03-08] VITALS (24 sets, daily range): BP systolic 108–142; BP diastolic 57–77
--- NOTE | 2018-03-08 07:59 | PDOC ---
Provider Note Provider Note [id number] GEN PILLAI MD Mar 08, 2018 07:59
[2018-03-08] MEDS: METOPROLOL TART IMMED RELEASE 50 MG TABLET. PO SCH ×2 (08:37→20:46)
[2018-03-08] MEDS: DEXAMETHASONE SOD PHOS 20 MG/5 ML VIAL. IV SCH (08:37)
[2018-03-08] MEDS: hydroCHLOROthiazide 12.5 MG CAPSULE PO SCH (08:37)
[2018-03-08] MEDS: levETIRAcetam 500 MG in IV DEXTROSE 5% 100ML 100 ML IV SCH ×2 (08:38→20:46)
--- NOTE | 2018-03-08 08:55 | PDOC ---
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, epistaxis, and fall out of bed here on 07 March, currently on IV Decadron and IVIG, IVIG was planned daily for 4 days, and Decadron has been 40 mg IV since 07 March Intracranial bleed: Neurosurgery is involved, stable ITP: He can continue IVIG 4 days, this should not be a problem, today is day 3 of 4, we'll transition Decadron to po, we'll continue 40 mg daily for at least 4 days, began 07 March, and consider up to 8 days before planning next regimen depending on response Thrombocytopenia: as long as platelet count is greater than 30,000 (ideally 50, 000 w/ recent bleed) and he's not having any decline in status or recurrent bleeding will continue current plan Neurologic decline: Pending rehabilitation, on [facility] Disposition: Per others, likely to rehabilitation, and we will continue to follow as an outpatient as needed Thank you kindly and please do not hesitate to call with questions. VITAL SIGNS Vital Signs: Vital Signs Date Time Temp Pulse Resp B/P (MAP) Pulse Ox O2 Delivery O2 Flow Rate FiO2 03/08/18 08:37 69 129/72 03/08/18 06:00 22 99 Room Air 03/08/18 04:00 97.2 97.2 03/07/18 12:00 12.0 I & O I & O Intake and Output 03/08/18 07:00 Intake Total 2525 ml Output Total 1900 ml Balance 625 ml Intake Oral 400 ml IV Total 2125 ml Output Urine Total 1900 ml # Voids 2 ALLERGIES Allergies: Allergies Coded Allergies Type Severity Reaction Last Updated Verified No Known Drug Allergies 03/05/18 No MEDS Medications: Current Medications Medications (Trade) Dose Ordered Sig/Rafael Start Time Stop Time Status Last Admin Dose Admin Acetaminophen (Tylenol) 650 mg PRN Q4HRS PRN 03/05/18 11:15 03/06/18 11:14 DC Atorvastatin Calcium (Lipitor) 10 mg QHS 03/05/18 21:00 03/07/18 20:30 10 MG Dexamethasone (Decadron) 40 mg [id number] 03/06/18 08:00 03/06/18 16:54 DC 03/06/18 09:20 40 MG Dexamethasone Sodium Phosphate (Decadron) 40 mg DAILY 03/07/18 09:00 03/08/18 08:37 40 MG Diltiazem HCl (Cardizem 24hr Cd) 180 mg DAILY 03/05/18 17:00 03/08/18 08:37 180 MG Hydrochlorothiazide (Microzide) 12.5 mg DAILY 03/05/18 17:00 03/08/18 08:37 12.5 MG Immune Globulin 200 ml @ 0 mls/hr DAILY@1200 03/06/18 12:00 03/10/18 11:59 03/07/18 13:34 75 MLS/HR Info (CONTRAST GIVEN -- Rx MONITORING) 1 each PRN DAILY PRN 03/06/18 09:45 03/08/18 09:44 Iohexol (Omnipaque 300 Mg/ml) 60 ml 1X ONCE 03/06/18 09:45 03/06/18 09:46 DC 03/06/18 09:45 60 ML Labetalol HCl (Normodyne Iv Push) 10 mg PRN Q2HRS PRN 03/06/18 18:45 Levetiracetam 1000 mg/Dextrose 110 ml @ 440 mls/hr 1X ONCE 03/06/18 12:45 03/06/18 12:59 DC 03/06/18 13:04 440 MLS/HR Levetiracetam 500 mg/Dextrose 105 ml @ 420 mls/hr Q12HR 03/06/18 21:00 03/08/18 08:38 420 MLS/HR Methylprednisolone Sodium Succinate (SOLU-Medrol 125MG VIAL) 125 mg 1X ONCE 03/05/18 11:15 03/05/18 11:16 DC 03/05/18 11:48 125 MG Metoprolol Tartrate (Lopressor) 50 mg BID 03/05/18 21:00 03/08/18 08:37 50 MG Ondansetron HCl (Zofran) 4 mg PRN Q8HRS PRN 03/05/18 11:15 03/06/18 11:14 DC Pantoprazole Sodium (PROTONIX VIAL for IV PUSH) 40 mg DAILY 03/07/18 09:00 03/08/18 07:56 DC 03/07/18 10:08 40 MG Pantoprazole Sodium (Protonix) 40 mg DAILYAC 03/08/18 12:30 Potassium Chloride/Dextrose/ Sod Cl 1,000 ml @ 100 mls/hr Q10H 03/06/18 18:00 03/08/18 07:56 DC 03/07/18 19:36 100 MLS/HR LAB Lab: Laboratory Tests Test 03/08/18 04:40 Platelet Count 56 x10^3/uL (140-400) FAMILIA NEAL MD Mar 08, 2018 08:54
[2018-03-08] MEDS ORDERED: DEXAMETHASONE 4 MG TABLET PO SCH (09:30)
--- NOTE | 2018-03-08 10:13 | PDOC ---
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 2 of the hemorrhages are symptomatic with the midbrain causing eye movement abnormality in the cerebellum causing coordination changes. Fortunately, the platelets counts are already responding to the treatment orchestrated by the mannequin mold maker. A follow- up CAT scan of the brain did not reveal any change in the size of the hemorrhages. 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 Prognosis for recovery from these neurologic insults is still favorable. Plan Continue IVIG treatment for the idiopathic thrombocytopenic purpura Rehabilitation. Ultimately he will require a rehabilitation stay. Continue intravenous levetiracetam until he is able to swallow and then we will switch it to the oral route. I would anticipate he will be on this medication for 4-8 weeks. Continue statin, check lipids Antiplatelet agents and anticoagulation are contraindicated Subjective He denies pain Objective Vital Signs Date Time Temp Pulse Resp B/P (MAP) Pulse Ox O2 Delivery O2 Flow Rate FiO2 03/08/18 08:37 69 129/72 03/08/18 06:00 22 99 Room Air 03/08/18 04:00 97.2 97.2 03/07/18 12:00 12.0 Intake and Output 03/08/18 07:00 Intake Total 2525 ml Output Total 1900 ml Balance 625 ml Intake Oral 400 ml IV Total 2125 ml Output Urine Total 1900 ml # Voids 2 PHYSICAL EXAM Alert. Oriented to time, place and person. PERRL. EOMI. CN: Right ptosis, left lateral gaze palsy. Slight left central facial weakness. Muscle tone: normal. Muscle strength: 4/5 DTR: 2+ Plantar reflex: flexor Gait: not examined in bed. Sensory exam: no abnormal findings. Left-sided dysmetria Review of Relevant I have reviewed the following items mei (where applicable) has been applied. Labs Laboratory Tests Test 03/06/18 10:55 03/06/18 11:00 03/06/18 14:00 03/07/18 06:30 White Blood Count 20.2 x10^3/uL (4.0-11.0) 25.9 x10^3/uL (4.0-11.0) Red Blood Count 4.73 x10^6/uL (4.30-5.70) 4.39 x10^6/uL (4.30-5.70) Hemoglobin 14.9 g/dL (13.0-17.5) 13.5 g/dL (13.0-17.5) Hematocrit 42.6 % (39.0-53.0) 39.6 % (39.0-53.0) Mean Corpuscular Volume 90 fL (79-100) 90 fL (79-100) Mean Corpuscular Hemoglobin 32 pg (25-35) 31 pg (25-35) Mean Corpuscular Hemoglobin Concent 35 g/dL (31-37) 34 g/dL (31-37) Red Cell Distribution Width 13.8 % (11.5-14.5) 14.0 % (11.5-14.5) Platelet Count 4 x10^3/uL (140-400) 65 x10^3/uL (140-400) Prothrombin Time 14.8 SEC (11.7-14.0) Prothromb Time International Ratio 1.2 (0.8-1.1) Activated Partial Thromboplast Time 27 SEC (24-38) Sodium Level 136 mmol/L (136-145) 136 mmol/L (136-145) Potassium Level 3.4 mmol/L (3.5-5.1) 3.6 mmol/L (3.5-5.1) Chloride Level 100 mmol/L (98-107) 101 mmol/L (98-107) Carbon Dioxide Level 28 mmol/L (21-32) 28 mmol/L (21-32) Anion Gap 8 (6-14) 7 (6-14) Blood Urea Nitrogen 21 mg/dL (8-26) 28 mg/dL (8-26) Creatinine 1.1 mg/dL (0.7-1.3) 1.0 mg/dL (0.7-1.3) Estimated GFR (Cockcroft-Gault) 63.5 70.8 Glucose Level 173 mg/dL (70-99) 166 mg/dL (70-99) Calcium Level 9.1 mg/dL (8.5-10.1) 8.6 mg/dL (8.5-10.1) Glucose (Fingerstick) 157 mg/dL (70-99) Nasal Screen MRSA (PCR) Negative (Negative) Neutrophils (%) (Auto) 93 % (31-73) Lymphocytes (%) (Auto) 4 % (24-48) Monocytes (%) (Auto) 3 % (0-9) Eosinophils (%) (Auto) 0 % (0-3) Basophils (%) (Auto) 0 % (0-3) Neutrophils # (Auto) 23.9 x10^3uL (1.8-7.7) Lymphocytes # (Auto) 1.0 x10^3/uL (1.0-4.8) Monocytes # (Auto) 0.9 x10^3/uL (0.0-1.1) Eosinophils # (Auto) 0.0 x10^3/uL (0.0-0.7) Basophils # (Auto) 0.1 x10^3/uL (0.0-0.2) Segmented Neutrophils % 84 % (35-66) Band Neutrophils % 9 % (0-9) Lymphocytes % 3 % (24-48) Monocytes % 4 % (0-10) Platelet Estimate Decreased (ADEQUATE) Large Platelets Occ BUN/Creatinine Ratio 28 (6-20) Total Bilirubin 1.2 mg/dL (0.2-1.0) Aspartate Amino Transf (AST/SGOT) 15 U/L (15-37) Alanine Aminotransferase (ALT/SGPT) 25 U/L (16-63) Alkaline Phosphatase 60 U/L (46-116) Total Protein 7.0 g/dL (6.4-8.2) Albumin 3.3 g/dL (3.4-5.0) Albumin/Globulin Ratio 0.9 (1.0-1.7) Test 03/08/18 04:40 Platelet Count 56 x10^3/uL (140-400) Laboratory Tests Test 03/08/18 04:40 Platelet Count 56 x10^3/uL (140-400) Medications Current Medications Methylprednisolone Sodium Succinate (SOLU-Medrol 125MG VIAL) 125 mg 1X ONCE IV Last administered on 03/05/18at 11:48; Start 03/05/18 at 11:15; Stop 03/05/18 at 11:16; Status DC Ondansetron HCl (Zofran) 4 mg PRN Q8HRS PRN IV NAUSEA/VOMITING; Start 03/05/18 at 11:15; Stop 03/06/18 at 11:14; Status DC Acetaminophen (Tylenol) 650 mg PRN Q4HRS PRN PO FEVER; Start 03/05/18 at 11:15; Stop 03/06/18 at 11:14; Status DC Dexamethasone (Decadron) 40 mg DAILYWBKFT PO Last administered on 03/06/18at 09: 20; Start 03/06/18 at 08:00; Stop 03/06/18 at 16:54; Status DC Pantoprazole Sodium (Protonix) 40 mg DAILYAC PO Last administered on 03/06/18at 08:17; Start 03/05/18 at 16:30; Stop 03/06/18 at 17:23; Status DC Metoprolol Tartrate (Lopressor) 50 mg BID PO Last administered on 03/08/18at 08: 37; Start 03/05/18 at 21:00 Hydrochlorothiazide (Microzide) 12.5 mg DAILY PO Last administered on 03/08/18at 08:37; Start 03/05/18 at 17:00 Atorvastatin Calcium (Lipitor) 10 mg QHS PO Last administered on 03/07/18at 20:30 ; Start 03/05/18 at 21:00 Diltiazem HCl (Cardizem 24hr Cd) 180 mg DAILY PO Last administered on 03/08/18at 08:37; Start 03/05/18 at 17:00 Immune Globulin 200 ml @ 0 mls/hr DAILY@1200 IV Last administered on 03/07/18at 13:34; Start 03/06/18 at 12:00; Stop 03/10/18 at 11:59 Iohexol (Omnipaque 300 Mg/ml) 60 ml 1X ONCE IV Last administered on 03/06/18at 09:45; Start 03/06/18 at 09:45; Stop 03/06/18 at 09:46; Status DC Info (CONTRAST GIVEN -- Rx MONITORING) 1 each PRN DAILY PRN MC SEE COMMENTS; Start 03/06/18 at 09:45; Stop 03/08/18 at 09:44; Status DC Levetiracetam 1000 mg/Dextrose 110 ml @ 440 mls/hr 1X ONCE IV Last administered on 03/06/18at 13:04; Start 03/06/18 at 12:45; Stop 03/06/18 at 12:59; Status DC Levetiracetam 500 mg/Dextrose 105 ml @ 420 mls/hr Q12HR IV Last administered on 03/08/18at 08:38; Start 03/06/18 at 21:00 Dexamethasone Sodium Phosphate (Decadron) 40 mg DAILY IV Last administered on at 08:37; Start 03/07/18 at 09:00; Stop 03/09/18 at 09:00 Pantoprazole Sodium (PROTONIX VIAL for IV PUSH) 40 mg DAILY IVP Last administered on 03/07/18at 10:08; Start 03/07/18 at 09:00; Stop 03/08/18 at 07:56; Status DC Potassium Chloride/Dextrose/ Sod Cl 1,000 ml @ 100 mls/hr Q10H IV Last administered on 03/07/18at 19:36; Start 03/06/18 at 18:00; Stop 03/08/18 at 07:56; Status DC Labetalol HCl (Normodyne Iv Push) 10 mg PRN Q2HRS PRN IVP HYPERTENSION, SEE COMMENTS; Start 03/06/18 at 18:45 Pantoprazole Sodium (Protonix) 40 mg DAILYAC PO ; Start 03/08/18 at 12:30 Dexamethasone (Decadron) 40 mg DAILY PO ; Start 03/08/18 at 09:30; Stop 03/08/18 at 09:30; Status DC Dexamethasone (Decadron) 40 mg DAILY PO ; Start 03/09/18 at 09:00 Active Scripts Active Reported Eliquis (Apixaban) 2.5 Mg Tablet 2.5 Mg PO BID Cartia Xt (Diltiazem Hcl) 180 Mg Cap.er.24h 180 Mg PO Hydrochlorothiazide Tablet (Hydrochlorothiazide) 12.5 Mg Tablet 1 Tab PO DAILY Simvastatin 20 Mg Tablet 1 Tab PO QHS Metoprolol Tartrate 50 Mg Tablet 1 Tab PO BID Vitals/I & O Vital Sign - Last 24 Hours 03/07/18 03/07/18 03/07/18 03/07/18 11:00 12:00 12:00 13:00 Temp 98.0 98.0 Pulse 73 71 73 Resp 16 16 16 B/P (MAP) 129/56 (80) 110/57 (74) 126/61 (82) Pulse Ox 94 94 95 O2 Delivery Room Air Venturi Mask Room Air Room Air O2 Flow Rate 12.0 03/07/18 03/07/18 03/07/18 03/07/18 14:00 15:00 16:00 16:00 Temp 98.3 98.3 Pulse 71 77 70 Resp 16 16 16 B/P (MAP) 119/51 (73) 119/62 (81) 125/65 (85) Pulse Ox 95 95 93 O2 Delivery Room Air Room Air Room Air Room Air 03/07/18 03/07/18 03/07/18 03/07/18 17:00 18:00 19:00 20:00 Pulse 73 71 72 Resp 14 19 21 B/P (MAP) 122/64 (83) 119/63 (81) 115/53 (73) Pulse Ox 96 99 96 O2 Delivery Room Air Room Air Room Air Room Air 03/07/18 03/07/18 03/07/18 03/07/18 20:00 20:30 21:00 22:00 Temp 98.4 98.4 Pulse 72 72 69 69 Resp 14 15 17 B/P (MAP) 114/50 (71) 114/55 112/51 (71) 117/58 (77) Pulse Ox 96 98 97 O2 Delivery Room Air Room Air Room Air 03/07/18 03/08/18 03/08/18 03/08/18 23:00 00:00 00:00 00:57 Temp 97.9 97.9 Pulse 68 70 69 Resp 17 17 25 B/P (MAP) 111/57 (75) 134/68 (90) 131/69 (89) Pulse Ox 98 99 100 O2 Delivery Room Air Room Air Room Air Room Air 03/08/18 03/08/18 03/08/18 03/08/18 02:00 03:00 04:00 04:00 Temp 97.2 97.2 Pulse 69 69 69 Resp 19 14 12 B/P (MAP) 123/69 (87) 142/72 (95) 134/69 (90) Pulse Ox 99 97 98 O2 Delivery Room Air Room Air Room Air Room Air 03/08/18 03/08/18 03/08/18 03/08/18 05:00 06:00 08:37 08:37 Pulse 69 69 69 69 Resp 9 22 B/P (MAP) 141/64 (89) 129/72 (91) 129/72 129/72 Pulse Ox 98 99 O2 Delivery Room Air Room Air Intake and Output 03/07/18 03/07/18 03/08/18 15:00 23:00 07:00 Intake Total 300 ml 100 ml 2125 ml Output Total 250 ml 600 ml 1050 ml Balance 50 ml -500 ml 1075 ml Images There is no evidence of midline shift. There is a 2 cm hyperdensity identified in the left cerebellum, 1.5 cm hyperdensity identified in the right midbrain and small subcortical hyperdensities identified in the left frontal and punctate deep bilateral parietal lobes similar to prior exam likely foci of intracerebral bleed similar to prior exam. No evidence of midline shift. The visualized lateral ventricles, third ventricle, fourth ventricle appropriate for age. The basal cisterns are uneffaced. Moderate mucosal thickening identified in the bilateral ethmoidal sinuses, maxillary sinuses likely sinus disease IMPRESSION: Unchanged foci of intracerebral bleed as described above. ASCENCION AZEVEDO MD Mar 08, 2018 10:13
--- NOTE | 2018-03-08 12:22 | PN ---
DATE: 03/08/2018 The patient is sleeping and breathing easily. Vitals are stable with his previously known trigeminal rhythm on the monitor. Platelet count is stable at 55,000 and there has been no further clinical bleeding externally or any neurologic change given the various areas of bleeding in his brain. I feel he is clinically stable. He passed a swallow evaluation, so we will stop his IV fluids and transfer him to the floor. He will need rehab at time of discharge and we will have Dr. Oates to see as well in advance of that. He is still on Decadron; he will get 1-2 more doses of IVIG for 1-2 more days as well until we prove platelet counts are stable. GEN PILLAI MD DR: FLACO/nts JOB#: [id number] / [id number]
[2018-03-08] MEDS: IMMUNE GLOBULIN,GAMMA(IGG) 10% 200 ML IV SCH (15:38)
[2018-03-08] MEDS: PANTOPRAZOLE 40 MG TABLET.DR. PO SCH (15:39)
[2018-03-08] MEDS: ATORVASTATIN CALCIUM 10 MG TABLET. PO SCH (20:45)
[2018-03-09] VITALS (16 sets, daily range): BP systolic 105–144; BP diastolic 55–82
--- NOTE | 2018-03-09 08:11 | PDOC ---
Provider Note Provider Note [id number] GEN PILLAI MD Mar 09, 2018 08:11
--- NOTE | 2018-03-09 08:28 | PDOC ---
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, epistaxis, and fall out of bed here on 07 March, currently on Decadron and IVIG day 4, IVIG was planned daily for 4 days, and Decadron has been 40 mg daily since 07 March Intracranial bleed: stable, no surg intervention at this time ITP: He can continue IVIG 4 days through today, and cont Decadron 40 mg po daily for 4-8 days, began 07 March, and consider taper depending on response Thrombocytopenia: as long as platelet count is greater than 30,000 (ideally 50, 000 w/ recent bleed) and he's not having any decline in status or recurrent bleeding will continue current plan Neurologic decline: Pending rehabilitation, on [facility] Disposition: Per others, likely to rehabilitation, and we will continue to follow as an outpatient as needed Thank you kindly and please do not hesitate to call with questions. OBJECTIVE Vital Signs Vital Signs Date Time Temp Pulse Resp B/P (MAP) Pulse Ox O2 Delivery O2 Flow Rate FiO2 03/09/18 07:00 69 21 114/66 (82) Room Air 03/09/18 06:00 79 34 137/79 (98) Room Air 03/09/18 05:00 70 25 124/66 (85) 95 Room Air 03/09/18 04:00 Room Air 03/09/18 04:00 70 11 123/71 (88) Room Air 03/09/18 03:00 68 16 136/82 (100) Room Air 03/09/18 02:00 69 21 112/55 (74) 99 Room Air 03/09/18 01:00 68 12 135/66 (89) 98 Room Air 03/09/18 00:00 Room Air 03/09/18 00:00 97.6 70 25 144/81 (102) 98 Room Air 97.6 03/08/18 23:00 69 13 142/77 (98) 99 Room Air 03/08/18 22:00 69 15 135/69 (91) 93 Room Air 03/08/18 21:00 69 14 112/59 (76) 98 Room Air 03/08/18 20:46 72 143/72 03/08/18 20:00 97.6 73 19 136/68 (90) 99 Room Air 97.6 03/08/18 20:00 Room Air 03/08/18 19:00 69 15 132/66 (88) 99 Room Air 03/08/18 18:00 69 15 140/74 (96) 99 Room Air 03/08/18 17:00 68 22 129/72 (91) 99 Room Air 03/08/18 16:00 Room Air 03/08/18 16:00 97.8 68 22 129/72 (91) 99 Room Air 97.8 03/08/18 15:00 68 22 129/72 (91) 99 Room Air 03/08/18 14:00 68 22 129/72 (91) 99 Room Air 03/08/18 13:00 68 22 129/72 (91) 99 Room Air 03/08/18 12:00 68 22 133/59 (83) 99 Room Air 03/08/18 12:00 Room Air 03/08/18 11:00 72 22 114/57 (76) 99 Room Air 03/08/18 10:00 72 22 108/62 (77) 99 Room Air 03/08/18 09:00 72 22 123/61 (81) 99 Room Air 03/08/18 08:37 69 129/72 03/08/18 08:37 69 129/72 I & O Intake and Output 03/09/18 07:00 Output Total 1095 ml Balance -1095 ml Output Urine Total 1095 ml # Voids 5 COMMENT Lab Laboratory Tests Test 03/09/18 04:10 Platelet Count 70 x10^3/uL (140-400) Triglycerides Level 87 mg/dL (0-150) Cholesterol Level 139 mg/dL (0-200) LDL Cholesterol, Calculated 76 mg/dL (0-100) VLDL Cholesterol, Calculated 17 mg/dL (0-40) Non-HDL Cholesterol Calculated 93 mg/dL (0-129) HDL Cholesterol 46 mg/dL (40-60) Cholesterol/HDL Ratio 3.0 FAMILIA NEAL MD Mar 09, 2018 08:28
[2018-03-09] MEDS: DEXAMETHASONE 4 MG TABLET PO SCH (09:00)
--- NOTE | 2018-03-09 10:15 | PDOC ---
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 Ultimately he will require a rehabilitation stay. Continue intravenous levetiracetam until he is able to swallow and then we will switch it to the oral route. I would anticipate he will be on this medication for 4-8 weeks. Continue statin, lipids are favorable Antiplatelet agents and anticoagulation are contraindicated Objective Vital Signs Date Time Temp Pulse Resp B/P (MAP) Pulse Ox O2 Delivery O2 Flow Rate FiO2 03/09/18 09:00 97.4 62 122/73 (89) Room Air 97.4 03/09/18 08:00 20 03/09/18 05:00 95 Intake and Output 03/09/18 07:00 Output Total 1095 ml Balance -1095 ml Output Urine Total 1095 ml # Voids 5 PHYSICAL EXAM Alert. Oriented to time, place and person. PERRL. EOMI. CN: Right ptosis, left lateral gaze palsy. Left central facial weakness. Muscle tone: normal. Muscle strength: 4/5 DTR: 2+ Plantar reflex: flexor Gait: not examined in bed. Sensory exam: no abnormal findings. Left-sided dysmetria Review of Relevant I have reviewed the following items mei (where applicable) has been applied. Labs Laboratory Tests Test 03/08/18 04:40 03/09/18 04:10 Platelet Count 56 x10^3/uL (140-400) 70 x10^3/uL (140-400) Triglycerides Level 87 mg/dL (0-150) Cholesterol Level 139 mg/dL (0-200) LDL Cholesterol, Calculated 76 mg/dL (0-100) VLDL Cholesterol, Calculated 17 mg/dL (0-40) Non-HDL Cholesterol Calculated 93 mg/dL (0-129) HDL Cholesterol 46 mg/dL (40-60) Cholesterol/HDL Ratio 3.0 Laboratory Tests Test 03/09/18 04:10 Platelet Count 70 x10^3/uL (140-400) Triglycerides Level 87 mg/dL (0-150) Cholesterol Level 139 mg/dL (0-200) LDL Cholesterol, Calculated 76 mg/dL (0-100) VLDL Cholesterol, Calculated 17 mg/dL (0-40) Non-HDL Cholesterol Calculated 93 mg/dL (0-129) HDL Cholesterol 46 mg/dL (40-60) Cholesterol/HDL Ratio 3.0 Medications Current Medications Methylprednisolone Sodium Succinate (SOLU-Medrol 125MG VIAL) 125 mg 1X ONCE IV Last administered on 03/05/18at 11:48; Start 03/05/18 at 11:15; Stop 03/05/18 at 11:16; Status DC Ondansetron HCl (Zofran) 4 mg PRN Q8HRS PRN IV NAUSEA/VOMITING; Start 03/05/18 at 11:15; Stop 03/06/18 at 11:14; Status DC Acetaminophen (Tylenol) 650 mg PRN Q4HRS PRN PO FEVER; Start 03/05/18 at 11:15; Stop 03/06/18 at 11:14; Status DC Dexamethasone (Decadron) 40 mg DAILYWBKFT PO Last administered on 03/06/18at 09: 20; Start 03/06/18 at 08:00; Stop 03/06/18 at 16:54; Status DC Pantoprazole Sodium (Protonix) 40 mg DAILYAC PO Last administered on 03/06/18at 08:17; Start 03/05/18 at 16:30; Stop 03/06/18 at 17:23; Status DC Metoprolol Tartrate (Lopressor) 50 mg BID PO Last administered on 03/08/18at 20: 46; Start 03/05/18 at 21:00 Hydrochlorothiazide (Microzide) 12.5 mg DAILY PO Last administered on 03/08/18 08:37; Start 03/05/18 at 17:00 Atorvastatin Calcium (Lipitor) 10 mg QHS PO Last administered on 03/08/18at 20:45 ; Start 03/05/18 at 21:00 Diltiazem HCl (Cardizem 24hr Cd) 180 mg DAILY PO Last administered on 03/08/18 08:37; Start 03/05/18 at 17:00 Immune Globulin 200 ml @ 0 mls/hr DAILY@1200 IV Last administered on 03/08/18 15:38; Start 03/06/18 at 12:00; Stop 03/10/18 at 11:59 Iohexol (Omnipaque 300 Mg/ml) 60 ml 1X ONCE IV Last administered on 9/2/18at 09:45; Start 03/06/18 at 09:45; Stop 03/06/18 at 09:46; Status DC Info (CONTRAST GIVEN -- Rx MONITORING) 1 each PRN DAILY PRN MC SEE COMMENTS; Start 03/06/18 at 09:45; Stop 03/08/18 at 09:44; Status DC Levetiracetam 1000 mg/Dextrose 110 ml @ 440 mls/hr 1X ONCE IV Last administered on 03/06/18at 13:04; Start 03/06/18 at 12:45; Stop 03/06/18 at 12:59; Status DC Levetiracetam 500 mg/Dextrose 105 ml @ 420 mls/hr Q12HR IV Last administered on 03/08/18at 20:46; Start 03/06/18 at 21:00 Dexamethasone Sodium Phosphate (Decadron) 40 mg DAILY IV Last administered on at 08:37; Start 03/07/18 at 09:00; Stop 03/09/18 at 09:00; Status DC Pantoprazole Sodium (PROTONIX VIAL for IV PUSH) 40 mg DAILY IVP Last administered on 03/07/18at 10:08; Start 03/07/18 at 09:00; Stop 03/08/18 at 07:56; Status DC Potassium Chloride/Dextrose/ Sod Cl 1,000 ml @ 100 mls/hr Q10H IV Last administered on 03/07/18at 19:36; Start 03/06/18 at 18:00; Stop 03/08/18 at 07:56; Status DC Labetalol HCl (Normodyne Iv Push) 10 mg PRN Q2HRS PRN IVP HYPERTENSION, SEE COMMENTS; Start 03/06/18 at 18:45 Pantoprazole Sodium (Protonix) 40 mg DAILYAC PO Last administered on 03/08/18at 15:39; Start 03/08/18 at 12:30 Dexamethasone (Decadron) 40 mg DAILY PO ; Start 03/08/18 at 09:30; Stop 03/08/18 at 09:30; Status DC Dexamethasone (Decadron) 40 mg DAILY PO ; Start 03/09/18 at 09:00 Active Scripts Active Reported Eliquis (Apixaban) 2.5 Mg Tablet 2.5 Mg PO BID Cartia Xt (Diltiazem Hcl) 180 Mg Cap.er.24h 180 Mg PO Hydrochlorothiazide Tablet (Hydrochlorothiazide) 12.5 Mg Tablet 1 Tab PO DAILY Simvastatin 20 Mg Tablet 1 Tab PO QHS Metoprolol Tartrate 50 Mg Tablet 1 Tab PO BID Vitals/I & O Vital Sign - Last 24 Hours 03/08/18 03/08/18 03/08/18 03/08/18 11:00 12:00 12:00 13:00 Pulse 72 68 68 Resp 22 22 22 B/P (MAP) 114/57 (76) 133/59 (83) 129/72 (91) Pulse Ox 99 99 99 O2 Delivery Room Air Room Air Room Air Room Air 03/08/18 03/08/18 03/08/18 03/08/18 14:00 15:00 16:00 16:00 Temp 97.8 97.8 Pulse 68 68 68 Resp 22 22 B/P (MAP) 129/72 (91) 129/72 (91) 129/72 (91) Pulse Ox 99 99 99 O2 Delivery Room Air Room Air Room Air Room Air 03/08/18 03/08/18 03/08/18 03/08/18 17:00 18:00 19:00 20:00 Pulse 68 69 69 Resp 22 15 15 B/P (MAP) 129/72 (91) 140/74 (96) 132/66 (88) Pulse Ox 99 99 99 O2 Delivery Room Air Room Air Room Air Room Air 03/08/18 03/08/18 03/08/18 03/08/18 20:00 20:46 21:00 22:00 Temp 97.6 97.6 Pulse 73 72 69 69 Resp 19 14 15 B/P (MAP) 136/68 (90) 143/72 112/59 (76) 135/69 (91) Pulse Ox 99 98 93 O2 Delivery Room Air Room Air Room Air 03/08/18 03/09/18 03/09/18 03/09/18 23:00 00:00 00:00 01:00 Temp 97.6 97.6 Pulse 69 70 68 Resp 13 25 12 B/P (MAP) 142/77 (98) 144/81 (102) 135/66 (89) Pulse Ox 99 98 98 O2 Delivery Room Air Room Air Room Air Room Air 03/09/18 03/09/18 03/09/18 03/09/18 02:00 03:00 04:00 04:00 Pulse 69 68 70 Resp 21 16 11 B/P (MAP) 112/55 (74) 136/82 (100) 123/71 (88) Pulse Ox 99 O2 Delivery Room Air Room Air Room Air Room Air 03/09/18 03/09/18 03/09/18 03/09/18 05:00 06:00 07:00 08:00 Pulse 70 79 69 Resp 25 34 21 B/P (MAP) 124/66 (85) 137/79 (98) 114/66 (82) Pulse Ox 95 O2 Delivery Room Air Room Air Room Air Room Air 03/09/18 03/09/18 08:00 09:00 Temp 97.4 97.4 97.4 97.4 Pulse 69 62 Resp 20 B/P (MAP) 122/73 (89) 122/73 (89) O2 Delivery Room Air Room Air Intake and Output 03/08/18 03/08/18 03/09/18 15:00 23:00 07:00 Output Total 475 ml 620 ml Balance -475 ml -620 ml ASCENCION AZEVEDO MD Mar 09, 2018 10:15
[2018-03-09] MEDS: PANTOPRAZOLE 40 MG TABLET.DR. PO SCH (11:37)
[2018-03-09] MEDS: METOPROLOL TART IMMED RELEASE 50 MG TABLET. PO SCH ×2 (11:38→20:54)
[2018-03-09] MEDS: hydroCHLOROthiazide 12.5 MG CAPSULE PO SCH (11:39)
[2018-03-09] MEDS: DEXAMETHASONE SOD PHOS 20 MG/5 ML VIAL. IV SCH (11:39)
[2018-03-09] MEDS: levETIRAcetam 500 MG in IV DEXTROSE 5% 100ML 100 ML IV SCH ×2 (11:40→20:54)
[2018-03-09] MEDS: IMMUNE GLOBULIN,GAMMA(IGG) 10% 200 ML IV SCH (12:00)
[2018-03-09] MEDS ORDERED: MAGNESIUM HYDROXIDE 2,400 MG/30 ML ORAL.SUSP. PO PRN (14:45)
[2018-03-09] MEDS: BISACODYL 5 MG TABLET.DR. PO SCH (15:50)
[2018-03-09] MEDS: ATORVASTATIN CALCIUM 10 MG TABLET. PO SCH (20:53)
[2018-03-09] MEDS: SENNOSIDES/DOCUSATE 8.6/50MG TABLET. PO SCH (20:53)
--- NOTE | 2018-03-09 23:00 | CONS ---
DATE OF CONSULTATION: 03/09/2018 ATTENDING PHYSICIAN: Dr. Gregg. REASON FOR CONSULTATION: The patient was seen at the request of Dr. Gregg for rehab evaluation. HISTORY OF PRESENT ILLNESS: This is an 87-year-old right-handed male. The patient was noted on the day prior to the admission to have a 3-day history of gradually increasing skin rash, petechial and purpuric lesions and CBC revealed a platelet count of 106,000. He was admitted for further evaluation and treatment of his thrombocytopenia. His hemoglobin and white cell count were normal. Physical examination confirmed suspected diagnosis of thrombocytopenia. The patient has been on Eliquis for paroxysmal atrial fibrillation and has been in sinus rhythm in the office during recent visits to Dr. Charles Gregg. He is being followed by [facility] for his medication. He also takes simvastatin and hydrochlorothiazide. 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 ALLERGIES: He is not known allergic to any medication. The patient, since admission, had a fall on 03/06/2018 and he developed acute four separate foci of hyperdense hemorrhage, including right side of the mid brain and left cerebellum and both parietal lobes. The patient had presented with balance problems. Physical Therapy and Occupational Therapy are working with him. He also had some drooping of his right eyelid and he had difficulty to open his right eye completely. The patient is being followed by Hematology-Oncology and he is getting immunoglobulin treatments. PHYSICAL EXAMINATION: Today revealed an elderly male. He is alert, oriented to time, place, person and circumstance and follows commands appropriately. He had again difficulty to open his right eye completely. No obvious visual field cut noted. He had mild dysarthria. No facial asymmetry noted. He had 4+/5 grade muscle strength overall. Deep tendon reflexes are 1 to 2+ and symmetrical and he had equal perception of touch and pinprick sensation bilaterally. He had incoordination using both upper and lower extremities while he is walking with a roller walker with physical therapy. He had a tendency to lean to the left side, unless somebody is holding on to him. ASSESSMENT: An elderly male with recent onset idiopathic thrombocytopenic purpura and a fall with four intracranial hemorrhages with ataxia and also difficulty to open his right eye and mild dysarthria. RECOMMENDATIONS: Agree with the plan for physical therapy, occupational therapy and speech pathology followup and when medically stable, to consider transfer to Acute Rehab Unit for continued inpatient rehab program. The patient's family prefers rehab unit at [place], where his daughter lives. Dr. Gregg, I appreciate asking me to participate in the care of this interesting patient. I will be glad to follow him with you as needed for the rehabilitation. MARTHA ISAAC MD DR: BRIANNA/yovana JOB#: [id number] / [id number] TANNA
--- NOTE | 2018-03-09 23:35 | PN ---
DATE: 03/09/2018 Platelet count is stable at 70,000 and neurologically appears to be about the same. Still with some mild decreased level of consciousness and mild dysarthria at times and the right ptosis still present. We will consult Dr. Bland regarding rehab recommendations still on oral Decadron and IVIG for another day or two and his platelet counts appeared to be stable or even slowly increasing. Rest of labs good. No further interventions planned at this time. Appropriate transfer will be arranged when final decision making is made. GEN PILLAI MD DR: FLACO/yovana JOB#: [id number] / [id number]
[2018-03-10 03:00] VITALS: BP 123/74
[2018-03-10 07:00] VITALS: BP 120/79
[2018-03-10] MEDS: PANTOPRAZOLE 40 MG TABLET.DR. PO SCH (08:17)
[2018-03-10] MEDS: BISACODYL 5 MG TABLET.DR. PO SCH (08:18)
[2018-03-10] MEDS: METOPROLOL TART IMMED RELEASE 50 MG TABLET. PO SCH ×2 (08:18→21:35)
[2018-03-10] MEDS: hydroCHLOROthiazide 12.5 MG CAPSULE PO SCH (08:19)
[2018-03-10] MEDS: SENNOSIDES/DOCUSATE 8.6/50MG TABLET. PO SCH ×2 (08:19→21:34)
--- NOTE | 2018-03-10 08:58 | PDOC ---
Provider Note Provider Note [id number] GEN PILLAI MD Mar 10, 2018 08:58
[2018-03-10] MEDS: DEXAMETHASONE 4 MG TABLET PO SCH (09:04)
[2018-03-10] MEDS: levETIRAcetam 500 MG in IV DEXTROSE 5% 100ML 100 ML IV SCH (09:04)
[2018-03-10 11:01] VITALS: BP 140/79
[2018-03-10 15:00] VITALS: BP 132/66
--- NOTE | 2018-03-10 16:20 | PDOC ---
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 Ultimately he will require a rehabilitation stay. Oral levetiracetam, discontinue after 4-8 weeks. Continue statin, lipids are favorable Antiplatelet agents and anticoagulation are contraindicated Subjective No complaints Objective Vital Signs Date Time Temp Pulse Resp B/P (MAP) Pulse Ox O2 Delivery O2 Flow Rate FiO2 03/10/18 15:00 96.1 70 132/66 (88) 95 Room Air 96.1 03/09/18 16:01 12.0 03/09/18 14:00 18 Intake and Output 03/10/18 07:00 Intake Total 1010 ml Output Total 1500 ml Balance -490 ml Intake Oral 1010 ml Output Urine Total 1500 ml PHYSICAL EXAM Alert. Oriented to time, place and person. PERRL. CN: Left eye lateral gaze palsy, right MARCUS, Right ptosis, Left central facial weakness. Muscle tone: normal. Muscle strength: 4/5 DTR: 2+ Plantar reflex: flexor Gait: not examined in bed. Sensory exam: no abnormal findings. Left-sided dysmetria Review of Relevant I have reviewed the following items mei (where applicable) has been applied. Labs Laboratory Tests Test 03/09/18 04:10 03/10/18 09:40 Platelet Count 70 x10^3/uL (140-400) 105 x10^3/uL (140-400) Triglycerides Level 87 mg/dL (0-150) Cholesterol Level 139 mg/dL (0-200) LDL Cholesterol, Calculated 76 mg/dL (0-100) VLDL Cholesterol, Calculated 17 mg/dL (0-40) Non-HDL Cholesterol Calculated 93 mg/dL (0-129) HDL Cholesterol 46 mg/dL (40-60) Cholesterol/HDL Ratio 3.0 Laboratory Tests Test 03/10/18 09:40 Platelet Count 105 x10^3/uL (140-400) Medications Current Medications Methylprednisolone Sodium Succinate (SOLU-Medrol 125MG VIAL) 125 mg 1X ONCE IV Last administered on 03/05/18at 11:48; Start 03/05/18 at 11:15; Stop 03/05/18 at 11:16; Status DC Ondansetron HCl (Zofran) 4 mg PRN Q8HRS PRN IV NAUSEA/VOMITING; Start 03/05/18 at 11:15; Stop 03/06/18 at 11:14; Status DC Acetaminophen (Tylenol) 650 mg PRN Q4HRS PRN PO FEVER; Start 03/05/18 at 11:15; Stop 03/06/18 at 11:14; Status DC Dexamethasone (Decadron) 40 mg DAILYWBKFT PO Last administered on 03/06/18at 09: 20; Start 03/06/18 at 08:00; Stop 03/06/18 at 16:54; Status DC Pantoprazole Sodium (Protonix) 40 mg DAILYAC PO Last administered on 03/06/18at 08:17; Start 03/05/18 at 16:30; Stop 03/06/18 at 17:23; Status DC Metoprolol Tartrate (Lopressor) 50 mg BID PO Last administered on 03/10/18at 08: 18; Start 03/05/18 at 21:00 Hydrochlorothiazide (Microzide) 12.5 mg DAILY PO Last administered on 03/10/18at 08:19; Start 03/05/18 at 17:00 Atorvastatin Calcium (Lipitor) 10 mg QHS PO Last administered on 03/09/18at 20:53 ; Start 03/05/18 at 21:00 Diltiazem HCl (Cardizem 24hr Cd) 180 mg DAILY PO Last administered on 03/10/18at 08:17; Start 03/05/18 at 17:00 Immune Globulin 200 ml @ 0 mls/hr DAILY@1200 IV Last administered on 03/09/18at 12:00; Start 03/06/18 at 12:00; Stop 03/10/18 at 11:21; Status DC Iohexol (Omnipaque 300 Mg/ml) 60 ml 1X ONCE IV Last administered on 03/06/18at 09:45; Start 03/06/18 at 09:45; Stop 03/06/18 at 09:46; Status DC Info (CONTRAST GIVEN -- Rx MONITORING) 1 each PRN DAILY PRN MC SEE COMMENTS; Start 03/06/18 at 09:45; Stop 03/08/18 at 09:44; Status DC Levetiracetam 1000 mg/Dextrose 110 ml @ 440 mls/hr 1X ONCE IV Last administered on 03/06/18at 13:04; Start 03/06/18 at 12:45; Stop 03/06/18 at 12:59; Status DC Levetiracetam 500 mg/Dextrose 105 ml @ 420 mls/hr Q12HR IV Last administered on 03/10/18at 09:04; Start 03/06/18 at 21:00 Dexamethasone Sodium Phosphate (Decadron) 40 mg DAILY IV Last administered on at 11:39; Start 03/07/18 at 09:00; Stop 03/09/18 at 09:00; Status DC Pantoprazole Sodium (PROTONIX VIAL for IV PUSH) 40 mg DAILY IVP Last administered on 03/07/18at 10:08; Start 03/07/18 at 09:00; Stop 03/08/18 at 07:56; Status DC Potassium Chloride/Dextrose/ Sod Cl 1,000 ml @ 100 mls/hr Q10H IV Last administered on 03/07/18at 19:36; Start 03/06/18 at 18:00; Stop 03/08/18 at 07:56; Status DC Labetalol HCl (Normodyne Iv Push) 10 mg PRN Q2HRS PRN IVP HYPERTENSION, SEE COMMENTS; Start 03/06/18 at 18:45 Pantoprazole Sodium (Protonix) 40 mg DAILYAC PO Last administered on 03/10/18at 08:17; Start 03/08/18 at 12:30 Dexamethasone (Decadron) 40 mg DAILY PO ; Start 03/08/18 at 09:30; Stop 03/08/18 at 09:30; Status DC Dexamethasone (Decadron) 40 mg DAILY PO Last administered on 03/10/18at 09:04; Start 03/09/18 at 09:00 Senna/Docusate Sodium (Senna Plus) 1 tab BID PO Last administered on 03/10/18at 08:19; Start 03/09/18 at 21:00 Magnesium Hydroxide (Milk Of Magnesia) 2,400 mg PRN DAILY PRN PO CONSTIPATION Last administered on 03/10/18at 10:10; Start 03/09/18 at 14:45 Bisacodyl (Dulcolax Tab) 10 mg DAILY PO Last administered on 03/10/18at 08:18; Start 03/09/18 at 15:30 Active Scripts Active Reported Eliquis (Apixaban) 2.5 Mg Tablet 2.5 Mg PO BID Cartia Xt (Diltiazem Hcl) 180 Mg Cap.er.24h 180 Mg PO Hydrochlorothiazide Tablet (Hydrochlorothiazide) 12.5 Mg Tablet 1 Tab PO DAILY Simvastatin 20 Mg Tablet 1 Tab PO QHS Metoprolol Tartrate 50 Mg Tablet 1 Tab PO BID Vitals/I & O Vital Sign - Last 24 Hours 03/09/18 03/09/18 03/09/18 03/09/18 19:00 20:00 20:54 23:00 Temp 97.9 97.9 97.9 97.9 Pulse 53 53 61 B/P (MAP) 105/65 (78) 105/65 119/69 (86) Pulse Ox 93 95 O2 Delivery Room Air Room Air Room Air 03/10/18 03/10/18 03/10/18 03/10/18 03:00 07:00 07:33 08:17 Temp 97.6 97.7 97.6 97.7 Pulse 58 68 68 B/P (MAP) 123/74 (90) 120/79 (93) 120/79 Pulse Ox 91 94 O2 Delivery Room Air Room Air Room Air 03/10/18 03/10/18 03/10/18 08:18 11:01 15:00 Temp 96.3 96.1 96.3 96.1 Pulse 68 72 70 B/P (MAP) 120/79 140/79 (99) 132/66 (88) Pulse Ox 96 95 O2 Delivery Room Air Room Air Intake and Output 03/09/18 03/09/18 03/10/18 15:00 23:00 07:00 Intake Total 410 ml 600 ml 0 ml Output Total 1200 ml 300 ml Balance 410 ml -600 ml -300 ml ASCENCION AZEVEDO MD Mar 10, 2018 16:20
--- NOTE | 2018-03-10 18:04 | PDOC ---
PROGRESS NOTES Subjective Subjective No new complaints. Objective Objective Vital Signs Date Time Temp Pulse Resp B/P (MAP) Pulse Ox O2 Delivery O2 Flow Rate FiO2 03/10/18 15:00 96.1 70 132/66 (88) 95 Room Air 96.1 03/09/18 16:01 12.0 03/09/18 14:00 18 Intake and Output 03/10/18 07:00 Intake Total 1010 ml Output Total 1500 ml Balance -490 ml Intake Oral 1010 ml Output Urine Total 1500 ml Physical Exam Physical Exam He continues with ataxia and constipation and has to be straight catheterized yesterday. This afternoon post voiding urine residual is 85 ml acceptable. Assessment Assessment Problems Medical Problems: (1) Thrombocytopenia Status: Acute Plan Plan of Care To rehab unit at [facility] when medically stable. Comment Review of Relevant I have reviewed the following items mei (where applicable) has been applied. Labs Laboratory Tests Test 03/09/18 04:10 03/10/18 09:40 Platelet Count 70 x10^3/uL (140-400) 105 x10^3/uL (140-400) Triglycerides Level 87 mg/dL (0-150) Cholesterol Level 139 mg/dL (0-200) LDL Cholesterol, Calculated 76 mg/dL (0-100) VLDL Cholesterol, Calculated 17 mg/dL (0-40) Non-HDL Cholesterol Calculated 93 mg/dL (0-129) HDL Cholesterol 46 mg/dL (40-60) Cholesterol/HDL Ratio 3.0 Laboratory Tests Test 03/10/18 09:40 Platelet Count 105 x10^3/uL (140-400) Medications Current Medications Methylprednisolone Sodium Succinate (SOLU-Medrol 125MG VIAL) 125 mg 1X ONCE IV Last administered on 03/05/18at 11:48; Start 03/05/18 at 11:15; Stop 03/05/18 at 11:16; Status DC Ondansetron HCl (Zofran) 4 mg PRN Q8HRS PRN IV NAUSEA/VOMITING; Start 03/05/18 at 11:15; Stop 03/06/18 at 11:14; Status DC Acetaminophen (Tylenol) 650 mg PRN Q4HRS PRN PO FEVER; Start 03/05/18 at 11:15; Stop 03/06/18 at 11:14; Status DC Dexamethasone (Decadron) 40 mg DAILYWBKFT PO Last administered on 03/06/18at 09: 20; Start 03/06/18 at 08:00; Stop 03/06/18 at 16:54; Status DC Pantoprazole Sodium (Protonix) 40 mg DAILYAC PO Last administered on 03/06/18at 08:17; Start 03/05/18 at 16:30; Stop 03/06/18 at 17:23; Status DC Metoprolol Tartrate (Lopressor) 50 mg BID PO Last administered on 03/10/18at 08: 18; Start 03/05/18 at 21:00 Hydrochlorothiazide (Microzide) 12.5 mg DAILY PO Last administered on 03/10/18at 08:19; Start 03/05/18 at 17:00 Atorvastatin Calcium (Lipitor) 10 mg QHS PO Last administered on 03/09/18at 20:53 ; Start 03/05/18 at 21:00 Diltiazem HCl (Cardizem 24hr Cd) 180 mg DAILY PO Last administered on 03/10/18at 08:17; Start 03/05/18 at 17:00 Immune Globulin 200 ml @ 0 mls/hr DAILY@1200 IV Last administered on 03/09/18at 12:00; Start 03/06/18 at 12:00; Stop 03/10/18 at 11:21; Status DC Iohexol (Omnipaque 300 Mg/ml) 60 ml 1X ONCE IV Last administered on 03/06/18at 09:45; Start 03/06/18 at 09:45; Stop 03/06/18 at 09:46; Status DC Info (CONTRAST GIVEN -- Rx MONITORING) 1 each PRN DAILY PRN MC SEE COMMENTS; Start 03/06/18 at 09:45; Stop 03/08/18 at 09:44; Status DC Levetiracetam 1000 mg/Dextrose 110 ml @ 440 mls/hr 1X ONCE IV Last administered on 03/06/18at 13:04; Start 03/06/18 at 12:45; Stop 03/06/18 at 12:59; Status DC Levetiracetam 500 mg/Dextrose 105 ml @ 420 mls/hr Q12HR IV Last administered on 03/10/18at 09:04; Start 03/06/18 at 21:00; Stop 03/10/18 at 16:22; Status DC Dexamethasone Sodium Phosphate (Decadron) 40 mg DAILY IV Last administered on at 11:39; Start 03/07/18 at 09:00; Stop 03/09/18 at 09:00; Status DC Pantoprazole Sodium (PROTONIX VIAL for IV PUSH) 40 mg DAILY IVP Last administered on 03/07/18at 10:08; Start 03/07/18 at 09:00; Stop 03/08/18 at 07:56; Status DC Potassium Chloride/Dextrose/ Sod Cl 1,000 ml @ 100 mls/hr Q10H IV Last administered on 03/07/18at 19:36; Start 03/06/18 at 18:00; Stop 03/08/18 at 07:56; Status DC Labetalol HCl (Normodyne Iv Push) 10 mg PRN Q2HRS PRN IVP HYPERTENSION, SEE COMMENTS; Start 03/06/18 at 18:45 Pantoprazole Sodium (Protonix) 40 mg DAILYAC PO Last administered on 03/10/18at 08:17; Start 03/08/18 at 12:30 Dexamethasone (Decadron) 40 mg DAILY PO ; Start 03/08/18 at 09:30; Stop 03/08/18 at 09:30; Status DC Dexamethasone (Decadron) 40 mg DAILY PO Last administered on 03/10/18at 09:04; Start 03/09/18 at 09:00 Senna/Docusate Sodium (Senna Plus) 1 tab BID PO Last administered on 03/10/18at 08:19; Start 03/09/18 at 21:00 Magnesium Hydroxide (Milk Of Magnesia) 2,400 mg PRN DAILY PRN PO CONSTIPATION Last administered on 03/10/18at 10:10; Start 03/09/18 at 14:45 Bisacodyl (Dulcolax Tab) 10 mg DAILY PO Last administered on 03/10/18at 08:18; Start 03/09/18 at 15:30 Levetiracetam (Keppra) 500 mg BID PO ; Start 03/10/18 at 21:00 Active Scripts Active Reported Eliquis (Apixaban) 2.5 Mg Tablet 2.5 Mg PO BID Cartia Xt (Diltiazem Hcl) 180 Mg Cap.er.24h 180 Mg PO Hydrochlorothiazide Tablet (Hydrochlorothiazide) 12.5 Mg Tablet 1 Tab PO DAILY Simvastatin 20 Mg Tablet 1 Tab PO QHS Metoprolol Tartrate 50 Mg Tablet 1 Tab PO BID Vitals/I & O Vital Sign - Last 24 Hours 03/09/18 03/09/18 03/09/18 03/09/18 19:00 20:00 20:54 23:00 Temp 97.9 97.9 97.9 97.9 Pulse 53 53 61 B/P (MAP) 105/65 (78) 105/65 119/69 (86) Pulse Ox 93 95 O2 Delivery Room Air Room Air Room Air 03/10/18 03/10/18 03/10/18 03/10/18 03:00 07:00 07:33 08:17 Temp 97.6 97.7 97.6 97.7 Pulse 58 68 68 B/P (MAP) 123/74 (90) 120/79 (93) 120/79 Pulse Ox 91 94 O2 Delivery Room Air Room Air Room Air 03/10/18 03/10/18 03/10/18 08:18 11:01 15:00 Temp 96.3 96.1 96.3 96.1 Pulse 68 72 70 B/P (MAP) 120/79 140/79 (99) 132/66 (88) Pulse Ox 96 95 O2 Delivery Room Air Room Air Intake and Output 03/09/18 03/09/18 03/10/18 15:00 23:00 07:00 Intake Total 410 ml 600 ml 0 ml Output Total 1200 ml 300 ml Balance 410 ml -600 ml -300 ml MARTHA ISAAC MD Mar 10, 2018 18:04
--- NOTE | 2018-03-10 19:19 | PN ---
DATE: 03/10/2018 The patient looks more alert and neurologically about the same with the ptosis of the right eye, inadequate left-sided gaze with no overt arm or leg weakness. Nose is still swollen from the fall and the cut. There is no new evidence of bleeding. Platelet count is pending this morning. His lab has not been drawn yet. Rehab placement is in progress and looks like he can get off the IVIG and probably the Decadron fairly soon and Dr. Castillo can switch him to p.ramandeep Frankel when he feels he is ready for that. GEN PILLAI MD DR: FLACO/yovana JOB#: [id number] / [id number]
[2018-03-10 19:40] VITALS: BP 127/67
[2018-03-10] MEDS ORDERED: ASCORBIC ACID 500 MG TABLET PO SCH (21:00)
[2018-03-10] MEDS: ATORVASTATIN CALCIUM 10 MG TABLET. PO SCH (21:34)
[2018-03-10] MEDS: levETIRAcetam 500 MG TABLET PO SCH (21:34)
[2018-03-10 23:57] VITALS: BP 127/50
[2018-03-11 03:10] VITALS: BP 140/76
[2018-03-11] MEDS: PANTOPRAZOLE 40 MG TABLET.DR. PO SCH (07:30)
[2018-03-11 07:40] VITALS: BP 132/79
--- NOTE | 2018-03-11 08:04 | DISCH ---
DISCHARGE DISCHARGE INFORMATION: FINAL DIAGNOSIS Problems Medical Problems: (1) Thrombocytopenia Status: Acute CODE STATUS: Code Status: Full NURSING HOME: SNF STAY <30 DAYS: Yes POST DISCHARGE ORDERS: ACTIVITY ORDERS: No restrictions FOLLOW-UP: PHYSICIAN FOLLOW-UP: prn DISCHARGE MEDICATIONS: Home Meds Reported Medications Apixaban (ELIQUIS) 2.5 Mg Tablet, 2.5 MG PO BID, TAB 03/05/18 Diltiazem Hcl (CARTIA XT) 180 Mg Cap.er.24h, 180 MG PO, CAP.SR 03/05/18 Hydrochlorothiazide (HYDROCHLOROTHIAZIDE TABLET) 12.5 Mg Tablet, 1 TAB PO DAILY , #90 TAB 1 Refill 03/05/18 Simvastatin (SIMVASTATIN) 20 Mg Tablet, 1 TAB PO QHS, #90 TAB 1 Refill 03/05/18 Metoprolol Tartrate (METOPROLOL TARTRATE) 50 Mg Tablet, 1 TAB PO BID, #180 TAB 1 Refill 03/05/18 GEN PILLAI MD Mar 11, 2018 08:04
--- NOTE | 2018-03-11 08:09 | PDOC ---
Provider Note Provider Note [id number] GEN PILLAI MD Mar 11, 2018 08:09
[2018-03-11] MEDS: levETIRAcetam 500 MG TABLET PO SCH (08:37)
[2018-03-11] MEDS: METOPROLOL TART IMMED RELEASE 50 MG TABLET. PO SCH (08:37)
[2018-03-11] MEDS: SENNOSIDES/DOCUSATE 8.6/50MG TABLET. PO SCH (08:38)
[2018-03-11] MEDS: hydroCHLOROthiazide 12.5 MG CAPSULE PO SCH (08:38)
--- NOTE | 2018-03-11 08:46 | PDOC ---
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 Thrombocytopenia: >100, no bleeding Neurologic decline: Pending rehabilitation, on [facility] Disposition: Per others, likely to rehabilitation very soon at [facility], and we will continue to follow as an outpatient as needed Thank you kindly and please do not hesitate to call with questions. OBJECTIVE Vital Signs Vital Signs Date Time Temp Pulse Resp B/P (MAP) Pulse Ox O2 Delivery O2 Flow Rate FiO2 03/11/18 08:38 69 132/79 03/11/18 08:37 69 132/79 03/11/18 07:40 97.4 69 20 132/79 (96) 93 Room Air 97.4 03/11/18 03:10 98.2 69 20 140/76 (97) 95 Room Air 98.2 03/10/18 23:57 97.5 67 20 127/50 (75) 94 Room Air 97.5 03/10/18 21:35 68 144/76 03/10/18 20:00 Room Air 03/10/18 19:40 98.0 66 18 127/67 (87) 94 Room Air 98.0 03/10/18 15:00 96.1 70 132/66 (88) 95 Room Air 96.1 03/10/18 11:01 96.3 72 140/79 (99) 96 Room Air 96.3 I & O Intake and Output 03/11/18 07:00 Intake Total 1880 ml Output Total 1050 ml Balance 830 ml Intake Oral 1880 ml Output Urine Total 1050 ml # Voids 1 # Bowel Movements 1 COMMENT Lab Laboratory Tests Test 03/10/18 09:40 03/11/18 06:25 Platelet Count 105 x10^3/uL (140-400) 115 x10^3/uL (140-400) FAMILIA NEAL MD Mar 11, 2018 08:46
--- NOTE | 2018-03-11 09:48 | PDOC ---
PROGRESS NOTES Subjective Subjective No new complaints. Objective Objective Vital Signs Date Time Temp Pulse Resp B/P (MAP) Pulse Ox O2 Delivery O2 Flow Rate FiO2 03/11/18 08:38 69 132/79 03/11/18 07:40 97.4 20 93 Room Air 97.4 03/09/18 16:01 12.0 Intake and Output 03/11/18 07:00 Intake Total 1880 ml Output Total 1050 ml Balance 830 ml Intake Oral 1880 ml Output Urine Total 1050 ml # Voids 1 # Bowel Movements 1 Physical Exam Physical Exam He is supine in bed,alert and moves all 4 extremities actively and is continent.He had mild dysarthria. Assessment Assessment Problems Medical Problems: (1) Thrombocytopenia Status: Acute Plan Plan of Care To rehab unit at [facility] for continued in patient rehab program. Comment Review of Relevant I have reviewed the following items mei (where applicable) has been applied. Labs Laboratory Tests Test 03/10/18 09:40 03/11/18 06:25 Platelet Count 105 x10^3/uL (140-400) 115 x10^3/uL (140-400) Laboratory Tests Test 03/11/18 06:25 Platelet Count 115 x10^3/uL (140-400) Medications Current Medications Methylprednisolone Sodium Succinate (SOLU-Medrol 125MG VIAL) 125 mg 1X ONCE IV Last administered on 03/05/18at 11:48; Start 03/05/18 at 11:15; Stop 03/05/18 at 11:16; Status DC Ondansetron HCl (Zofran) 4 mg PRN Q8HRS PRN IV NAUSEA/VOMITING; Start 03/05/18 at 11:15; Stop 03/06/18 at 11:14; Status DC Acetaminophen (Tylenol) 650 mg PRN Q4HRS PRN PO FEVER; Start 03/05/18 at 11:15; Stop 03/06/18 at 11:14; Status DC Dexamethasone (Decadron) 40 mg DAILYWBKFT PO Last administered on 03/06/18at 09: 20; Start 03/06/18 at 08:00; Stop 03/06/18 at 16:54; Status DC Pantoprazole Sodium (Protonix) 40 mg DAILYAC PO Last administered on 03/06/18at 08:17; Start 03/05/18 at 16:30; Stop 03/06/18 at 17:23; Status DC Metoprolol Tartrate (Lopressor) 50 mg BID PO Last administered on 03/11/18 08: 37; Start 03/05/18 at 21:00 Hydrochlorothiazide (Microzide) 12.5 mg DAILY PO Last administered on 03/11/18 08:38; Start 03/05/18 at 17:00 Atorvastatin Calcium (Lipitor) 10 mg QHS PO Last administered on 03/10/18at 21:34 ; Start 03/05/18 at 21:00 Diltiazem HCl (Cardizem 24hr Cd) 180 mg DAILY PO Last administered on 03/11/18at 08:38; Start 03/05/18 at 17:00 Immune Globulin 200 ml @ 0 mls/hr DAILY@1200 IV Last administered on 03/09/18at 12:00; Start 03/06/18 at 12:00; Stop 03/10/18 at 11:21; Status DC Iohexol (Omnipaque 300 Mg/ml) 60 ml 1X ONCE IV Last administered on 03/06/18at 09:45; Start 03/06/18 at 09:45; Stop 03/06/18 at 09:46; Status DC Info (CONTRAST GIVEN -- Rx MONITORING) 1 each PRN DAILY PRN MC SEE COMMENTS; Start 03/06/18 at 09:45; Stop 03/08/18 at 09:44; Status DC Levetiracetam 1000 mg/Dextrose 110 ml @ 440 mls/hr 1X ONCE IV Last administered on 03/06/18at 13:04; Start 03/06/18 at 12:45; Stop 03/06/18 at 12:59; Status DC Levetiracetam 500 mg/Dextrose 105 ml @ 420 mls/hr Q12HR IV Last administered on 03/10/18at 09:04; Start 03/06/18 at 21:00; Stop 03/10/18 at 16:22; Status DC Dexamethasone Sodium Phosphate (Decadron) 40 mg DAILY IV Last administered on at 11:39; Start 03/07/18 at 09:00; Stop 03/09/18 at 09:00; Status DC Pantoprazole Sodium (PROTONIX VIAL for IV PUSH) 40 mg DAILY IVP Last administered on 03/07/18at 10:08; Start 03/07/18 at 09:00; Stop 03/08/18 at 07:56; Status DC Potassium Chloride/Dextrose/ Sod Cl 1,000 ml @ 100 mls/hr Q10H IV Last administered on 03/07/18at 19:36; Start 03/06/18 at 18:00; Stop 03/08/18 at 07:56; Status DC Labetalol HCl (Normodyne Iv Push) 10 mg PRN Q2HRS PRN IVP HYPERTENSION, SEE COMMENTS; Start 03/06/18 at 18:45; Stop 03/11/18 at 08:04; Status DC Pantoprazole Sodium (Protonix) 40 mg DAILYAC PO Last administered on 03/10/18at 08:17; Start 03/08/18 at 12:30; Stop 03/11/18 at 08:04; Status DC Dexamethasone (Decadron) 40 mg DAILY PO ; Start 03/08/18 at 09:30; Stop 03/08/18 at 09:30; Status DC Dexamethasone (Decadron) 40 mg DAILY PO Last administered on 03/10/18at 09:04; Start 03/09/18 at 09:00; Stop 03/11/18 at 08:04; Status DC Senna/Docusate Sodium (Senna Plus) 1 tab BID PO Last administered on 03/11/18at 08:38; Start 03/09/18 at 21:00 Magnesium Hydroxide (Milk Of Magnesia) 2,400 mg PRN DAILY PRN PO CONSTIPATION Last administered on 03/10/18at 10:10; Start 03/09/18 at 14:45 Bisacodyl (Dulcolax Tab) 10 mg DAILY PO Last administered on 03/10/18at 08:18; Start 03/09/18 at 15:30; Stop 03/11/18 at 08:04; Status DC Levetiracetam (Keppra) 500 mg BID PO Last administered on 03/11/18at 08:37; Start 03/10/18 at 21:00 Ascorbic Acid (Vitamin C) 500 mg BID PO Last administered on 03/10/18at 21:00; Start 03/10/18 at 21:00; Stop 03/11/18 at 08:04; Status DC Active Scripts Active Reported Cartia Xt (Diltiazem Hcl) 180 Mg Cap.er.24h 180 Mg PO Hydrochlorothiazide Tablet (Hydrochlorothiazide) 12.5 Mg Tablet 1 Tab PO DAILY Simvastatin 20 Mg Tablet 1 Tab PO QHS Metoprolol Tartrate 50 Mg Tablet 1 Tab PO BID Vitals/I & O Vital Sign - Last 24 Hours 03/10/18 03/10/18 03/10/18 03/10/18 11:01 15:00 19:40 20:00 Temp 96.3 96.1 98.0 96.3 96.1 98.0 Pulse 72 70 66 Resp 18 B/P (MAP) 140/79 (99) 132/66 (88) 127/67 (87) Pulse Ox 96 95 94 O2 Delivery Room Air Room Air Room Air Room Air 03/10/18 03/10/18 03/11/18 03/11/18 21:35 23:57 03:10 07:40 Temp 97.5 98.2 97.4 97.5 98.2 97.4 Pulse 68 67 69 69 Resp 20 20 20 B/P (MAP) 144/76 127/50 (75) 140/76 (97) 132/79 (96) Pulse Ox 94 95 93 O2 Delivery Room Air Room Air Room Air 03/11/18 03/11/18 08:37 08:38 Pulse 69 69 B/P (MAP) 132/79 132/79 Intake and Output 03/10/18 03/10/18 03/11/18 15:00 23:00 07:00 Intake Total 960 ml 720 ml 200 ml Output Total 600 ml 450 ml Balance 360 ml 720 ml -250 ml MARTHA ISAAC MD Mar 11, 2018 09:48
[2018-03-11 11:01] VITALS: BP 140/69
--- NOTE | 2018-03-11 11:41 | PDOC ---
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 Ultimately he will require a rehabilitation stay. Oral levetiracetam, discontinue after 4-8 weeks. Continue statin, lipids are favorable Antiplatelet agents and anticoagulation are contraindicated Transfer to skill nursing Subjective No complaints, denies pain Objective Vital Signs Date Time Temp Pulse Resp B/P (MAP) Pulse Ox O2 Delivery O2 Flow Rate FiO2 03/11/18 11:01 97.7 68 20 140/69 (92) 96 Room Air 97.7 Intake and Output 03/11/18 07:00 Intake Total 1880 ml Output Total 1050 ml Balance 830 ml Intake Oral 1880 ml Output Urine Total 1050 ml # Voids 1 # Bowel Movements 1 PHYSICAL EXAM Alert. Oriented to time, place and person. PERRL. CN: Left eye lateral gaze palsy, right MARCUS, Right ptosis, Left central facial weakness. Muscle tone: normal. Muscle strength: 4/5 DTR: 2+ Plantar reflex: flexor Gait: not examined in bed. Sensory exam: no abnormal findings. Left-sided dysmetria Review of Relevant I have reviewed the following items mei (where applicable) has been applied. Labs Laboratory Tests Test 03/10/18 09:40 03/11/18 06:25 Platelet Count 105 x10^3/uL (140-400) 115 x10^3/uL (140-400) Laboratory Tests Test 03/11/18 06:25 Platelet Count 115 x10^3/uL (140-400) Medications Current Medications Methylprednisolone Sodium Succinate (SOLU-Medrol 125MG VIAL) 125 mg 1X ONCE IV Last administered on 03/05/18at 11:48; Start 03/05/18 at 11:15; Stop 03/05/18 at 11:16; Status DC Ondansetron HCl (Zofran) 4 mg PRN Q8HRS PRN IV NAUSEA/VOMITING; Start 03/05/18 at 11:15; Stop 03/06/18 at 11:14; Status DC Acetaminophen (Tylenol) 650 mg PRN Q4HRS PRN PO FEVER; Start 03/05/18 at 11:15; Stop 03/06/18 at 11:14; Status DC Dexamethasone (Decadron) 40 mg [id number] PO Last administered on 03/06/18at 09: 20; Start 03/06/18 at 08:00; Stop 03/06/18 at 16:54; Status DC Pantoprazole Sodium (Protonix) 40 mg DAILYAC PO Last administered on 03/06/18at 08:17; Start 03/05/18 at 16:30; Stop 03/06/18 at 17:23; Status DC Metoprolol Tartrate (Lopressor) 50 mg BID PO Last administered on 03/11/18at 08: 37; Start 03/05/18 at 21:00 Hydrochlorothiazide (Microzide) 12.5 mg DAILY PO Last administered on 03/11/18at 08:38; Start 03/05/18 at 17:00 Atorvastatin Calcium (Lipitor) 10 mg QHS PO Last administered on 03/10/18at 21:34 ; Start 03/05/18 at 21:00 Diltiazem HCl (Cardizem 24hr Cd) 180 mg DAILY PO Last administered on 03/11/18at 08:38; Start 03/05/18 at 17:00 Immune Globulin 200 ml @ 0 mls/hr DAILY@1200 IV Last administered on 03/09/18at 12:00; Start 03/06/18 at 12:00; Stop 03/10/18 at 11:21; Status DC Iohexol (Omnipaque 300 Mg/ml) 60 ml 1X ONCE IV Last administered on 03/06/18at 09:45; Start 03/06/18 at 09:45; Stop 03/06/18 at 09:46; Status DC Info (CONTRAST GIVEN -- Rx MONITORING) 1 each PRN DAILY PRN MC SEE COMMENTS; Start 03/06/18 at 09:45; Stop 03/08/18 at 09:44; Status DC Levetiracetam 1000 mg/Dextrose 110 ml @ 440 mls/hr 1X ONCE IV Last administered on 03/06/18at 13:04; Start 03/06/18 at 12:45; Stop 03/06/18 at 12:59; Status DC Levetiracetam 500 mg/Dextrose 105 ml @ 420 mls/hr Q12HR IV Last administered on 03/10/18at 09:04; Start 03/06/18 at 21:00; Stop 03/10/18 at 16:22; Status DC Dexamethasone Sodium Phosphate (Decadron) 40 mg DAILY IV Last administered on at 11:39; Start 03/07/18 at 09:00; Stop 03/09/18 at 09:00; Status DC Pantoprazole Sodium (PROTONIX VIAL for IV PUSH) 40 mg DAILY IVP Last administered on 03/07/18at 10:08; Start 03/07/18 at 09:00; Stop 03/08/18 at 07:56; Status DC Potassium Chloride/Dextrose/ Sod Cl 1,000 ml @ 100 mls/hr Q10H IV Last administered on 03/07/18at 19:36; Start 03/06/18 at 18:00; Stop 03/08/18 at 07:56; Status DC Labetalol HCl (Normodyne Iv Push) 10 mg PRN Q2HRS PRN IVP HYPERTENSION, SEE COMMENTS; Start 03/06/18 at 18:45; Stop 03/11/18 at 08:04; Status DC Pantoprazole Sodium (Protonix) 40 mg DAILYAC PO Last administered on 03/10/18at 08:17; Start 03/08/18 at 12:30; Stop 03/11/18 at 08:04; Status DC Dexamethasone (Decadron) 40 mg DAILY PO ; Start 03/08/18 at 09:30; Stop 03/08/18 at 09:30; Status DC Dexamethasone (Decadron) 40 mg DAILY PO Last administered on 03/10/18at 09:04; Start 03/09/18 at 09:00; Stop 03/11/18 at 08:04; Status DC Senna/Docusate Sodium (Senna Plus) 1 tab BID PO Last administered on 03/11/18at 08:38; Start 03/09/18 at 21:00 Magnesium Hydroxide (Milk Of Magnesia) 2,400 mg PRN DAILY PRN PO CONSTIPATION Last administered on 03/10/18at 10:10; Start 03/09/18 at 14:45 Bisacodyl (Dulcolax Tab) 10 mg DAILY PO Last administered on 03/10/18at 08:18; Start 03/09/18 at 15:30; Stop 03/11/18 at 08:04; Status DC Levetiracetam (Keppra) 500 mg BID PO Last administered on 03/11/18at 08:37; Start 03/10/18 at 21:00 Ascorbic Acid (Vitamin C) 500 mg BID PO Last administered on 03/10/18at 21:00; Start 03/10/18 at 21:00; Stop 03/11/18 at 08:04; Status DC Active Scripts Active Reported Cartia Xt (Diltiazem Hcl) 180 Mg Cap.er.24h 180 Mg PO Hydrochlorothiazide Tablet (Hydrochlorothiazide) 12.5 Mg Tablet 1 Tab PO DAILY Simvastatin 20 Mg Tablet 1 Tab PO QHS Metoprolol Tartrate 50 Mg Tablet 1 Tab PO BID Vitals/I & O Vital Sign - Last 24 Hours 03/10/18 03/10/18 03/10/18 03/10/18 15:00 19:40 20:00 21:35 Temp 96.1 98.0 96.1 98.0 Pulse 70 66 68 Resp 18 B/P (MAP) 132/66 (88) 127/67 (87) 144/76 Pulse Ox 95 94 O2 Delivery Room Air Room Air Room Air 03/10/18 03/11/18 03/11/18 03/11/18 23:57 03:10 07:40 08:00 Temp 97.5 98.2 97.4 97.5 98.2 97.4 Pulse 67 69 69 Resp 20 20 20 B/P (MAP) 127/50 (75) 140/76 (97) 132/79 (96) Pulse Ox 94 95 93 O2 Delivery Room Air Room Air Room Air Room Air 03/11/18 03/11/18 03/11/18 08:37 08:38 11:01 Temp 97.7 97.7 Pulse 69 69 68 Resp 20 B/P (MAP) 132/79 132/79 140/69 (92) Pulse Ox 96 O2 Delivery Room Air Intake and Output 03/10/18 03/10/18 03/11/18 15:00 23:00 07:00 Intake Total 960 ml 720 ml 200 ml Output Total 600 ml 450 ml Balance 360 ml 720 ml -250 ml ASCENCION AZEVEDO MD Mar 11, 2018 11:41
--- NOTE | 2018-03-11 12:07 | DS ---
DATE OF DISCHARGE: 03/11/2018 HOSPITAL SUMMARY: An 87-year-old white male came in with severe thrombocytopenia and platelet count less than 4000 and at risk for bleeding. Rest of the CBC was unremarkable as was the chemistry profile and the INR. Imaging studies after he developed neurologic symptoms the next day showed evidence of some acute bleeding within the right side of the mid brain, about 15 mm in size. He had a left cerebellum bleeding, about 21 mm and some small subcortical hemorrhage in the anterior parietal lobe, only about 5 mm. He had right-sided ptosis and also some left gaze deficits as well. He was transferred to the ICU and treatment with IV Decadron and IV immunoglobulin was begun and continued throughout the hospital stay. His platelet count slowly improved and was up to 70,000 on 03/09/2018 and 115,000 at the time of discharge, when the medications were stopped. He is medically stable and was seen by rehab, with Dr. Bland, and was transferred to [facility] at this point for continued care. His main neurologic deficit appears to be from the mid brain bleed and also the left cerebellar bleed to a lesser degree. FINAL DIAGNOSES: 1. Acute idiopathic thrombocytopenic purpura. 2. Spontaneous hemorrhage in the right mid brain, left cerebellum and left frontal lobe, with subsequent neurologic deficits. OPERATIONS, PROCEDURES, AND COMPLICATIONS: None. CONSULTATIONS: Dr. Bland and Dr. Jain. DISPOSITION: Continue rest of home medicines the same. No more Eliquis, which he had been on as an outpatient. We will not use further Decadron and we will monitor platelets about every 3 days now. Steroids can be resumed with other meds, considered if his platelet counts decline further at this point. PROGNOSIS: Guarded. GEN PILLAI MD DR: FLACO/yovana JOB#: [id number] / [id number]
== END 2018-03-11 13:15 | DRG 813 ==
LOC: ER 09:28 → 5 SOUTH 10:30 → 1 WEST ICU 03-06 12:19 → 6 SOUTH 03-09 13:27
PROVIDERS: ADMIT Family Medicine; ATTEND Family Medicine
DX: D69.3 Immune thrombocytopenic purpura (principal); I61.4 Nontraumatic intracerebral hemorrhage in cerebellum; I61.3 Nontraumatic intracerebral hemorrhage in brain stem; E78.00 Pure hypercholesterolemia, unspecified; E78.5 Hyperlipidemia, unspecified; H02.401 Unspecified ptosis of right eyelid; H51.0 Palsy (spasm) of conjugate gaze; H57.04 Mydriasis; I10 Essential (primary) hypertension; I48.0 Paroxysmal atrial fibrillation; R04.0 Epistaxis; W06.XXXA Fall from bed, initial encounter; S01.21XA Laceration without foreign body of nose, initial encounter; Z79.01 Long term (current) use of anticoagulants; Z79.899 Other long term (current) drug therapy; Z87.891 Personal history of nicotine dependence; Z95.0 Presence of cardiac pacemaker; Y93.89 Activity, other specified; Y99.8 Other external cause status
CPT/HCPCS: 36415; 70450; 70470; 71045; 80048; 80053; 80061; 80076; 82607; 82746; 82962; 83615; 85007; 85025; 85027; 85049; 85379; 85384; 85610; 85730; 86850; 86900; 86901; 87641; 93005; 96374; C9113; J1100; J1459; J1953; J2930; J8540; P9035; Q9967; 92526; 92610; 97110; 97116; 97530; 97535; 99285-25